=== PATIENT | male | born 1940 | race Caucasian/White ===

== ENCOUNTER 2019-06-16 07:32 | Observation (INO) | payer MEDICARE, SELFPAY ==
[2019-06-16] VITALS (20 sets, daily range): BP systolic 160–234; BP diastolic 71–108; PULSE 63–79; RESP 13–20; TEMP 36.3–36.9; O2SAT 96–99; BMI 32.0
--- NOTE | 2019-06-16 07:39 | ED.NEUROSD ---
HPI - Neuro Symptoms/Deficit General Chief Complaint: Neuro Symptoms/Deficit Stated Complaint: Weakness & Difficulty Walking Time Seen by Provider: 06/16/19 07:37 Source: patient Mode of arrival: EMS Limitations: no limitations History of Present Illness HPI Narrative: 79-year-old male arrives by EMS for evaluation of symptoms that occurred this morning. Patient states that he went to bed last night feeling fine. States that he woke up this morning feeling lightheaded. He stated that he felt like he could not walk with his left leg being weaker than his right leg. He states that when he called 911 he thought that he was slurring his words. All of the symptoms have greatly improved if not resolved. Patient has a history of hypertension. Did not take his blood pressure medicines yesterday. No prior history of stroke. Not on anticoagulation. He did not fall this morning. Related Data Home Medications Medication Instructions Recorded Confirmed atorvastatin 40 mg PO DAILY 06/16/19 06/16/19 citalopram 20 mg PO DAILY 06/16/19 06/16/19 losartan-hydrochlorothiazide 1 tab PO DAILY 06/16/19 06/16/19 naproxen sodium [Aleve] 220 mg PO PRN PRN 06/16/19 06/16/19 omeprazole 20 mg PO DAILY 06/16/19 06/16/19 Allergies Allergy/AdvReac Type Severity Reaction Status Date / Time No Known Drug Allergies Allergy Verified 06/16/19 07:38 Review of Systems Constitutional Constitutional: Denies fever(s), Denies headache(s) and Reports weakness ENT Ears, Nose, Mouth, and Throat: Reports dizziness, Denies headache(s) and Reports disequilibrium Cardiovascular Cardiovascular: Denies chest pain and Denies dyspnea Respiratory Respiratory: Denies dyspnea Gastrointestinal Gastrointestinal: Denies abdominal pain, Denies nausea and Denies vomiting Genitourinary Genitourinary: Denies dysuria Musculoskeletal Musculoskeletal: Reports abnormal gait, Denies myalgias, Denies arthralgias, Reports muscle weakness, Reports numbness and Reports tingling Integumentary/Breasts Skin/Breast: Denies lesions and Denies rash Neurologic Neurologic: Reports abnormal speech, Reports abnormal gait, Reports behavioral changes, Denies confusion, Reports dizziness, Denies headache(s), Reports numbness, Reports tingling, Reports disequilibrium and Reports weakness Psychiatric Psychiatric: Reports behavioral changes and Denies confusion Hematologic/Lymphatic Hematologic/Lymphatic: Denies easy bleeding and Denies easy bruising [facility] Medical History Hyperlipidemia (Acute) Hypertension (Acute) Surgical History History of prostatectomy (Acute) Social History lives independently: Yes Exam Initial Vital Signs Initial Vital Signs: Vital Signs Temperature 98.5 F 06/16/19 07:38 Pulse Rate 76 06/16/19 07:38 Respiratory Rate 16 06/16/19 07:38 Blood Pressure 234/94 H 06/16/19 07:38 Pulse Oximetry 99 06/16/19 07:38 Const General: cooperative, comfortable, well developed, well groomed and No acute distress Orientation: alert, awake and oriented x3 HENMT Head: normal to inspection, normocephalic and atraumatic Mouth: oral mucosae normal Eyes Pupils: PERRL EOM: EOM intact bilaterally Resp Effort & Inspection: normal respiratory effort Auscultation: clear to auscultation bilaterally Cardio Rate: regular rate Rhythm: regular rhythm Pulses: radial pulses present GI Inspection: non-distended Palpation: soft, No firm and No tender Back/Spine/Pelvis Back: No CVA tenderness Skin Lesions: no lesions Rashes: no rashes Neuro General: alert, awake and oriented x3 Cranial Nerves: CN's II-XI intact bilaterally Cognition: normal cognition Speech: speech normal Motor: muscle tone normal throughout Sensory Exam: no sensory deficits noted Coordination: [id number] test normal Extrem General: normal to inspection, capillary refill normal and No edema Psych Appearance: grossly normal and well kempt Scores GCS [place] coma scale eye opening: Spontaneous [place] coma scale verbal response: Orientated [place] coma scale motor response: Obey commands [place] coma scale total score: 15 NIH Stroke Scale Level of Conciousness: Alert, keenly responsive Ask month/age: Answers both questions correctly. Open/close eyes, close hand: Performs both tasks correctly Best gaze horizontal: Normal Visual campo: No visual loss Facial palsy: Normal symetrical movement Left arm drift: No drift for full 10 sec Right arm drift: No drift for full 10 sec Left leg drift: No drift for full 10 sec Right leg drift: No drift for full 10 sec Limb ataxia: Absent Sensory on face/arms/legs: Normal, no sensory loss Best language: No aphasia, normal Dysarthria: Normal Extinction or inattention: No abnormality Total NIH Stroke scale score: 0 Course Orders Ordered: ED Orders 06/16/19 07:35 EKG-12 Lead Stat 06/16/19 07:38 CT head/brain wo con Stat 06/16/19 07:39 XR chest 1V Stat 06/16/19 07:40 Complete Blood Count AUTO DIFF Stat Comprehensive Metabolic Panel Stat Ethanol (ETOH) Stat Lipase Stat Partial Thromboplastin Time Stat Prothrombin Time INR Stat Thyroid Stimulating Hormone Stat Troponin I Stat Discontinued Medications Aspirin (Aspirin Chew) 324 mg PO NOW ONE Stop: 06/16/19 07:38 Last Admin: 06/16/19 08:23 Dose: 324 mg Documented by: LAURITA Vital Signs Vital signs: Vital Signs - 8 hr 06/16/19 07:38 06/16/19 08:17 06/16/19 08:24 Temperature 98.5 F Pulse Rate 76 74 70 Respiratory Rate 16 19 19 Blood Pressure 234/94 H Blood Pressure [Left Arm] 204/91 H 208/85 H Pulse Oximetry 99 97 99 06/16/19 09:06 Temperature Pulse Rate 73 Respiratory Rate 18 Blood Pressure Blood Pressure [Left Arm] Pulse Oximetry 99 MDM - Neuro Symptoms/Deficit Lab Data Attestation: I reviewed the patient's lab results. Result diagrams: 06/16/19 07:40 06/16/19 07:40 Labs: Lab Results 06/16/19 06/16/19 06/16/19 Range/Units 07:40 07:40 07:40 WBC 8.7 (4.5-11.0) X10^3/uL RBC 4.66 (4.5-5.9) X10^6/uL Hgb 15.2 (13.5-17.5) g/dL Hct 43.4 (41-53) % MCV 93.2 (80-100) fL MCH 32.5 (26-34) PG MCHC 34.9 (30-36) % RDW 12.4 (11.6-14.8) % Plt Count 200 (150-400) X10^3/uL Neut % (Auto) 68.9 (50-75) % Lymph % (Auto) 21.3 L (25-40) % [place] % (Auto) 7.5 (3-14) % Eos % (Auto) 1.8 L (2-4) % Baso % (Auto) 0.5 (0-2) % Neut # (Auto) 6000 (7346-8033) /uL Lymph # (Auto) 1900 (2343-5264) /uL [place] # (Auto) 700 (0-900) /uL Eos # (Auto) 200 (0-450) /uL Baso # (Auto) 0 (0-100) /uL PT 10.7 (10.1-12.7) SECONDS INR 0.9 (0.9-1.3) APTT 27 (26.4-36.2) SECONDS Sodium 135 L (137-145) mmol/L Potassium 3.8 (3.4-5.1) mmol/L Chloride 92 L (98-107) mmol/L Carbon Dioxide 31 (22-32) mmol/L BUN 10 (9-20) mg/dL Creatinine 0.70 (0.66-1.25) mg/dL Estimated GFR > 60.0 (>60) mL/min BUN/Creatinine Ratio 14.3 (6-22) Glucose 106 (80-110) mg/dL Calcium 9.5 (8.4-10.2) mg/dL Total Bilirubin 1.1 (0.2-1.3) mg/dL AST 36 (17-59) IU/L ALT 37 (21-72) IU/L Alkaline Phosphatase 63 (38-126) U/L Troponin I < 0.012 (0.01-0.034) ng/mL Total Protein 7.8 (6.3-8.2) g/dL Albumin 4.8 (3.5-5.0) g/dL Globulin 3.0 (1.7-4.1) g/dL Albumin/Globulin Ratio 1.6 (1.0-2.8) Lipase 68 (23-300) U/L TSH (0.47-4.68) uIU/mL Ethyl Alcohol < 10 ( - 10) mg/dL 06/16/19 Range/Units 07:40 WBC (4.5-11.0) X10^3/uL RBC (4.5-5.9) X10^6/uL Hgb (13.5-17.5) g/dL Hct (41-53) % MCV (80-100) fL MCH (26-34) PG MCHC (30-36) % RDW (11.6-14.8) % Plt Count (150-400) X10^3/uL Neut % (Auto) (50-75) % Lymph % (Auto) (25-40) % [place] % (Auto) (3-14) % Eos % (Auto) (2-4) % Baso % (Auto) (0-2) % Neut # (Auto) (0628-4370) /uL Lymph # (Auto) (4700-6384) /uL [place] # (Auto) (0-900) /uL Eos # (Auto) (0-450) /uL Baso # (Auto) (0-100) /uL PT (10.1-12.7) SECONDS INR (0.9-1.3) APTT (26.4-36.2) SECONDS Sodium (137-145) mmol/L Potassium (3.4-5.1) mmol/L Chloride (98-107) mmol/L Carbon Dioxide (22-32) mmol/L BUN (9-20) mg/dL Creatinine (0.66-1.25) mg/dL Estimated GFR (>60) mL/min BUN/Creatinine Ratio (6-22) Glucose (80-110) mg/dL Calcium (8.4-10.2) mg/dL Total Bilirubin (0.2-1.3) mg/dL AST (17-59) IU/L ALT (21-72) IU/L Alkaline Phosphatase (38-126) U/L Troponin I (0.01-0.034) ng/mL Total Protein (6.3-8.2) g/dL Albumin (3.5-5.0) g/dL Globulin (1.7-4.1) g/dL Albumin/Globulin Ratio (1.0-2.8) Lipase (23-300) U/L TSH 1.69 (0.47-4.68) uIU/mL Ethyl Alcohol ( - 10) mg/dL Imaging Data CT scan - head: Radiologist's impression: [address] [address] [address] Scan Report Signed Patient: Alexandro Martinez MMR#: [id number] : 2Acct:[id number] Age/Sex: 79 / MDate of Service: 06/16/19 Loc: ED Accession Number: [id number] Procedure: CT head/brain wo con Ordering Provider: Víctor Juares D.O. PROCEDURE: CT HEAD/BRAIN WO CON INDICATIONS: possible TIA TECHNIQUE: Noncontrast 4.5 mm thick angled axial sections acquired from the foramen magnum to the vertex, with coronal and sagittal reformats. For radiation dose reduction, the following was used: automated exposure control, adjustment of mA and/or kV according to patient size. COMPARISON: None. FINDINGS: Image quality: Excellent. CSF spaces: Basal cisterns are patent. No extra-axial fluid collections. The ventricles are symmetric in size and shape. Brain: No intracranial bleeds or masses. Small lacunar infarcts are seen in bilateral basal ganglia. There is cerebral volume loss for age, with resultant ventricular and sulcal prominence. There are periventricular and deep white matter chronic small vessel ischemic changes. There is intracranial internal carotid artery atherosclerosis. Skull and face: Calvarium and visualized facial bones appear intact, without suspicious lesions. Sinuses: Visualized sinuses and mastoids are clear. IMPRESSION: 1. No CT evidence of acute intracranial pathology. 2. Mild atrophy and mild periventricular white matter chronic ischemic microangiopathic changes. 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 Dictated by: James Cervantes M.D. on 06/16/2019 at 8:16 Approved by: James Cervantes M.D. on 06/16/2019 at 8:17 Chest x-ray: Radiologist's impression: [place] [address] XRay Report Signed Patient: Alexandro Martinez [facility]#: [id number] : 2Acct:[id number] Age/Sex: 79 / MDate of Service: 06/16/19 Loc: ED Accession Number: [id number] Procedure: XR chest 1V Ordering Provider: Víctor Juares D.O. PROCEDURE: XR CHEST 1V INDICATIONS: possible TIA TECHNIQUE: One view of the chest was acquired. COMPARISON: None. FINDINGS: Surgical changes and devices: None. Lungs and pleura: Lungs are clear. No pleural effusions or pneumothorax. Mediastinum: Mediastinal contours appear normal. Heart size is normal. Bones and chest wall: No suspicious bony lesions. Overlying soft tissues appear unremarkable. IMPRESSION: No acute cardiopulmonary disease. Dictated by: Rhoda Wiggins M.D. on 06/16/2019 at 8:40 Approved by: Rhoda Wiggins M.D. on 06/16/2019 at 8:40 ECG Data Attestation: I personally reviewed and interpreted this ECG as follows: Prior ECG tracings: not available for review Interpretation: Sinus rhythm Ventricular rate is 72 Normal QRS Normal QTC Left axis deviation No ST T wave changes MDM Narrative Medical decision making narrative: Patient NIH score is 0. Was given aspirin. His blood pressure has come down on its own without any intervention. He did not take his blood pressure medicine yesterday. No acute changes on his head CT. No indication for tPA. I do suspect a TIA. I did discuss this with the patient. Will admit for further evaluation and treatment. Discussed the case with Dr. Boone with Internal Medicine who will admit for further evaluation treatment. Discharge Plan Departure Patient Disposition: Admitted as Observation Clinical Impression: TIA (transient ischemic attack) Hypertension Qualifiers: Hypertension type: unspecified Qualified Code(s): I10 - Essential (primary) hypertension
[2019-06-16 07:53] LABS: Add Manual Diff / Slide Review NO; Basophils Absolute Auto 0 /uL (0-100); Basophils Percent Auto 0.5 % (0-2); Eosinophils Absolute Auto 200 /uL (0-450); Eosinophils Percent Auto 1.8 % (2-4); Hematocrit 43.4 % (41-53); Hemoglobin 15.2 g/dL (13.5-17.5); Lymphocytes Absolute Auto 1900 /uL (1100-4500); Lymphocytes Percent Auto 21.3 % (25-40); Mean Corpuscular HGB Conc 34.9 % (30-36); Mean Corpuscular Hemoglobin 32.5 PG (26-34); Mean Corpuscular Volume 93.2 fL (80-100); Monocytes Absolute Auto 700 /uL (0-900); Monocytes Percent Auto 7.5 % (3-14); Neutrophils Absolute Auto 6000 /uL (1500-7000); Neutrophils Percent Auto 68.9 % (50-75); Platelet Count 200 X10^3/uL (150-400); Red Blood Cell Count 4.66 X10^6/uL (4.5-5.9); Red Cell Distribution Width 12.4 % (11.6-14.8); White Blood Cell Count 8.7 X10^3/uL (4.5-11.0)
[2019-06-16 07:55] LABS: INR 0.9 (0.9-1.3); Prothrombin Time 10.7 SECONDS (10.1-12.7)
[2019-06-16 07:58] LABS: PTT Partial Thromboplastin Tim 27 SECONDS (26.4-36.2)
[2019-06-16 08:12] LABS: Alanine Aminotransferase 37 IU/L (21-72); Albumin 4.8 g/dL (3.5-5.0); Albumin Globulin Ratio 1.6 (1.0-2.8); Alkaline Phosphatase 63 U/L (38-126); Aspartate Aminotransferase 36 IU/L (17-59); BUN Creatinine Ratio 14.3 (6-22); Bilirubin Total 1.1 mg/dL (0.2-1.3); Blood Urea Nitrogen 10 mg/dL (9-20); Calcium 9.5 mg/dL (8.4-10.2); Carbon Dioxide 31 mmol/L (22-32); Chloride 92 mmol/L (98-107); Estimated Glomerular Filt Rate > 60.0 mL/min (>60); Ethanol (ETOH) < 10 mg/dL; Glucose 106 mg/dL (80-110); HEMOLYSIS < 15 (0-50); Lipase 68 U/L (23-300); Potassium 3.8 mmol/L (3.4-5.1); Sodium 135 mmol/L (137-145); Total Protein 7.8 g/dL (6.3-8.2)
[2019-06-16 08:23] LABS: Troponin I < 0.012 ng/mL (0.01-0.034)
[2019-06-16] MEDS: ASPIRIN 81 MG CHEW TAB 324 MG PO (08:23)
--- NOTE | 2019-06-16 08:44 | PC.NURSE ---
Patient reports when he work up he was unable to walk and was dragging his left foot, he also reports difficulty finding/forming words. These symptoms have resolved now. NIH Scale 0.
[2019-06-16 08:45] LABS: Thyroid Stimulating Hormone 1.69 uIU/mL (0.47-4.68)
--- NOTE | 2019-06-16 14:45 | DI.MRI.S_ITS ---
PROCEDURE: MR STROKE Pre- and post-contrast brain MRI, non-contrast brain MR angiogram, pre- and postcontrast neck MR angiogram INDICATIONS: slurred speech, left sided weakness TECHNIQUE: Brain: Noncontrast axial T1 spin echo, axial T2 fast spin echo, sagittal and axial FLAIR, coronal T2 fast spin echo, axial gradient echo, axial diffusion and ADC through the brain. After the administration of contrast, axial 3D VIBE of the cranial vasculature and brain. Brain MRA: Non-contrast 3-D time of flight MR angiogram, with multiple rdrtkps-jiqamrghg-okjsepmryz (MIP) reformats performed. Neck MRA: Axial and sagittal TruFISP through the neck. Coronal dynamic MR angiogram during administration of contrast in the arterial and venous phases, with 3-dimenstional zxcvotu-qfgnyezdb-ekaglyclje (MIP) reformats constructed from subtraction images. COMPARISON: [facility], CT, CT HEAD/BRAIN WO CON, 06/16/2019, 8:05. FINDINGS: Image quality: Excellent. BRAIN: CSF spaces: Ventricles are normal in size and shape. Basal cisterns are patent. No extra-axial fluid collections. Brain: No intracranial bleeds or mass effects. [place]-white matter interface is normal. Diffusion weighted images show no acute ischemic insults. There is moderate cerebral volume loss. An old lacunar infarct is noted in the right james radiata. Brainstem appears normal. Normal intravascular flow voids are present. No abnormal intracranial enhancement. Skull and face: Calvarial marrow signal is normal. Orbits appear normal. Sinuses: Sinuses and mastoids are clear. BRAIN MR ANGIOGRAM: Anterior circulation: Intracranial internal carotid arteries are normal in size and enhancement. The flow within the paired anterior cerebral arteries is normal and symmetric. The flow within the middle cerebral arteries is normal and symmetric. The anterior communicating artery is seen. No stenoses, occlusions, or aneurysms. Posterior circulation: The visualized portions of the vertebral arteries demonstrate normal caliber, and join to form a normal appearing basilar artery. The flow within the posterior cerebral arteries is normal and symmetric. No stenoses, occlusions, or aneurysms. NECK MR ANGIOGRAM: There are motion artifacts. Carotids: There is common trunk for the left common carotid artery and innominate artery. The origins of the common carotid arteries appear patent. The calibers and courses of both common carotid arteries are normal. The bifurcation regions appear normal bilaterally. The internal carotid arteries demonstrate normal course and caliber. Posterior circulation: The origins of the vertebral arteries appear patent. There is an artifact the proximal right vertebral artery, and lesser degree the proximal left vertebral artery. More superior portions of both vertebral arteries demonstrate normal course and caliber, and join to form a normal appearing basilar artery. Miscellaneous: Subclavian arteries appear patent. Pre-contrast images through the neck show no soft tissue abnormalities. Trace left effusion. IMPRESSION: BRAIN MRI: 1. No acute intracranial abnormalities. 2. Moderate cerebral volume loss. 3. An old lacunar infarct in right james radiata. BRAIN MR ANGIOGRAM: 1. No high-grade stenosis or occlusion in anterior circulations. 2. No high-grade stenosis or occlusion in posterior circulations. NECK MR ANGIOGRAM: 1. No high-grade stenosis or occlusion in cervical carotid arteries bilaterally. 2. No high-grade stenosis or occlusion in cervical vertebral arteries bilaterally. Dictated by: Rhoda Wiggins M.D. on 06/16/2019 at 16:24 Approved by: Rhoda Wiggins M.D. on 06/16/2019 at 16:35
--- NOTE | 2019-06-16 15:38 | PC.NURSE ---
Admitted patient, patient is A/O x4 and amicable. Patient denies pain, SOB, N/V, dizziness or chest pain at this time. Patient off unit for MRI. Able to go down for procedure in wheelchair.
[2019-06-16] MEDS: SODIUM CHLORIDE 0.9% 1,000 ML 100 ML IV (17:17)
--- NOTE | 2019-06-16 17:50 | PM.HP.1 ---
History of Present Illness History of Present Illness Date Patient Seen: 06/16/19 Chief complaint: Weakness & Difficulty Walking Narrative: Alexandro Martinez is a 79-year-old male with a past medical history significant for hypertension, hyperlipidemia, and depression who presented after having an episode of slurred speech and lower extremity weakness left greater than right. The patient reports that when he woke up at approximately 7:00 a.m. and got out of bed he noticed his left foot was dragging which prompted him to call 911. When he was on the phone with 911 he noticed his speech was slurred and he had difficulty with pronunciation. He reports mild ataxia and bilateral lower extremity weakness left greater than right. His son denies any facial droop. He denies any upper extremity weakness or paresthesias. He also noted lightheadedness. His symptoms resolved within approximately 30 minutes. He denies ever having any stroke-like symptoms previously. Upon arrival to the emergency department the patients symptoms had resolved. Currently the patient denies headache, lightheadedness or dizziness, vision changes, chest pain, shortness of breath, abdominal pain, nausea, vomiting, fever, chills, dysuria, diarrhea constipation. 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 The patient was admitted for observation for TIA rule out. Of note, the patient reports that he drinks 5 mixed whiskey drinks per night. The patient denies any history of alcohol withdrawal, delirium tremens, or alcohol withdrawal seizures. However, the patient reports he has not went without alcohol for a substantial period of time. Patient History Medical History Alcohol dependence (Acute) Depression (Acute) GERD (gastroesophageal reflux disease) (Acute) Hyperlipidemia (Acute) Hypertension (Acute) Surgical History History of prostatectomy (Acute) History of tonsillectomy (Acute) Family History (Updated 06/16/19 @ 21:56 by Clementine Boone DO) Father CAD (coronary artery disease) Mother No problems noted. Social History household members: children lives independently: Yes Smoking Status: Former smoker alcohol intake: current Family & Social History Family History Father CAD (coronary artery disease) Mother No problems noted. Social History: household members children Prior Living Arrangements House lives independently Yes Safety & Behavioral: Feels Safe in Current Yes Environment Been Physically Hurt or No Threatened By a Person Suicidal Ideation Description None Suicide Plan Description No Plan Tobacco & Substance use: Tobacco type cigarettes,cigars Smoking Status Former smoker, 1ppd x 15 years alcohol intake current alcohol intake frequency 5 mixed whiskey drinks per day Substance Use Type marijuana Meds Home Medications and Allergies Home Medications Medication Instructions Recorded Confirmed Type atorvastatin 40 mg PO DAILY 06/16/19 06/16/19 History citalopram 20 mg PO DAILY 06/16/19 06/16/19 History losartan-hydrochlorothiazide 1 tab PO DAILY 06/16/19 06/16/19 History naproxen sodium [Aleve] 220 mg PO PRN PRN 06/16/19 06/16/19 History omeprazole 20 mg PO DAILY 06/16/19 06/16/19 History Allergies Allergy/AdvReac Type Severity Reaction Status Date / Time No Known Drug Allergies Allergy Verified 06/16/19 07:38 Review of Systems Review of Systems Narrative: A 10 system comprehensive review of systems was conducted with the patient and found to be negative except as above in the History of Present Illness. Exam Vital Signs (past 8 hours): - 06/16/19 10:07 06/16/19 10:39 06/16/19 11:17 Temperature Pulse Rate 78 76 76 Respiratory Rate 13 13 13 Blood Pressure Blood Pressure [Left Arm] 191/71 H 179/89 H 188/88 H Pulse Oximetry 98 97 97 06/16/19 12:00 06/16/19 13:19 06/16/19 13:23 Temperature 98.0 F Pulse Rate 76 78 79 Respiratory Rate 16 16 18 Blood Pressure 160/79 H 165/108 H Blood Pressure [Left Arm] 192/90 H Pulse Oximetry 96 97 97 06/16/19 16:00 06/16/19 16:56 Temperature 98.2 F Pulse Rate 76 Respiratory Rate 20 Blood Pressure 197/108 H Blood Pressure [Left Arm] Pulse Oximetry 98 98 Oxygen Delivery Method Room Air Oxygen Flow Rate 0 Narrative Exam Narrative: General: Elderly gentleman sitting in bedside chair and in no acute distress, well-developed, well-nourished, appropriately interactive. HEENT: Normocephalic, atraumatic. External ears without defect. Pupils equal, round, and reactive to light. Anicteric sclerae, moist conjunctivae, and no lid lag. Oropharynx free of erythema and cobble stoning with moist mucosa. Neck: Supple with full range of motion. No jugular venous distension. No bruits. No lymphadenopathy or thyromegaly. Cardiovascular: Regular rate and rhythm without murmurs, rubs, or gallops appreciated. Pulmonary: Clear to auscultation bilaterally without crackles, wheezes, or rhonchi. Normal respiratory effort with no use of accessory muscles. Abdomen: Soft, bowel sounds present, nontender, nondistended. No hepatosplenomegaly or masses appreciated. Extremities: No clubbing, cyanosis, or edema. Skin: Normal temperature, turgor, and texture; no rash, ulcers, or subcutaneous nodules appreciated. Neurological: Cranial nerves grossly intact. Normal muscle strength, tone, and bulk. Reflexes, coordination, and sensory function within normal limits. No facial droop. No slurred speech. No focal neurological deficits Psychiatric: Normal mood and affect. Alert and oriented to person, place, and time. Mild cognitive impairment with short-term memory recall deficit. Objective Labs Result Diagrams: 06/16/19 07:40 06/16/19 07:40 Labs: Laboratory Results - last 24 hr 06/16/19 06/16/19 06/16/19 07:40 07:40 07:40 WBC 8.7 RBC 4.66 Hgb 15.2 Hct 43.4 MCV 93.2 MCH 32.5 MCHC 34.9 RDW 12.4 Plt Count 200 Neut % (Auto) 68.9 Lymph % (Auto) 21.3 L [place] % (Auto) 7.5 Eos % (Auto) 1.8 L Baso % (Auto) 0.5 Neut # (Auto) 6000 Lymph # (Auto) 1900 [place] # (Auto) 700 Eos # (Auto) 200 Baso # (Auto) 0 PT 10.7 INR 0.9 APTT 27 Sodium 135 L Potassium 3.8 Chloride 92 L Carbon Dioxide 31 BUN 10 Creatinine 0.70 Estimated GFR > 60.0 BUN/Creatinine Ratio 14.3 Glucose 106 Calcium 9.5 Total Bilirubin 1.1 AST 36 ALT 37 Alkaline Phosphatase 63 Troponin I < 0.012 Total Protein 7.8 Albumin 4.8 Globulin 3.0 Albumin/Globulin Ratio 1.6 Lipase 68 TSH Ethyl Alcohol < 10 06/16/19 07:40 WBC RBC Hgb Hct MCV MCH MCHC RDW Plt Count Neut % (Auto) Lymph % (Auto) [place] % (Auto) Eos % (Auto) Baso % (Auto) Neut # (Auto) Lymph # (Auto) [place] # (Auto) Eos # (Auto) Baso # (Auto) PT INR APTT Sodium Potassium Chloride Carbon Dioxide BUN Creatinine Estimated GFR BUN/Creatinine Ratio Glucose Calcium Total Bilirubin AST ALT Alkaline Phosphatase Troponin I Total Protein Albumin Globulin Albumin/Globulin Ratio Lipase TSH 1.69 Ethyl Alcohol Assessment & Plan Assessment & Plan narrative: Alexandro Martinez is a 79-year-old male with a past medical history significant for hypertension, hyperlipidemia, depression, GERD, and alcohol dependence who presented after having an episode of slurred speech and lower extremity weakness left greater than right. 1. Acute TIA, not present on admission. Resolved. -Patient presented with complaints of sudden-onset lower extremity weakness left greater than right and slurred speech that resolved within 30 minutes prior to arrival. 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 -Ordered MR stroke protocol, pending. -Continue frequent neuro checks and NIH stroke assessment every 4. Initial NIH score 0. -Continue to monitor closely on telemetry for ectopy. -Ordered echocardiogram, pending. -Risk stratified with fasting lipid panel and hemoglobin A1c tomorrow morning, pending. -Continue normal saline at 100 mL/hr to support cerebral perfusion. -Received aspirin 325 mg x1 in ED. Continue aspirin 81 mg daily and atorvastatin 40 mg daily at bedtime for stroke prevention. -Continue to allow for permissive hypertension for 24 hours. Ordered labetalol 10 mg IV every 4 hours as need for SBP > 185 and DBP > 110 sustained for 15 mintues. 2. Chronic hypertension with possible hypertensive emergency, present on admission. Active. -Patient presented with complaints of sudden-onset lower extremity weakness left greater than right and slurred speech that resolved within 30 minutes prior to arrival. Initial blood pressure upon arrival was 234/94. Therefore it is unclear whether patient had TIA with appropriate physiological response versus hypertensive emergency with neurological symptoms -Held losartan and hydrochlorothiazide and will plan to restart tomorrow morning. Allow for permissive hypertension as above. -Highly recommended cutting back on alcohol or alcohol cessation as below. 3. Hyperlipidemia, chronic, present on admission. Stable. -Continue atorvastatin 40 mg daily at bedtime. 4. Depression, chronic, present on admission. Stable. -Continue citalopram 20 mg daily. 5. GERD, chronic, present on admission. Stable. -Continue omeprazole 20 mg daily. 6. Alcohol dependence, chronic, present on admission. Stable. -Patient endorses drinking 5 mixed whiskey drinks per day which are greater than 4 oz of alcohol. -Patient denies any history of alcohol withdrawal including delirium tremens or alcohol withdrawal seizures, however, patient has not gone a substantial amount of time without alcohol. -Continue to monitor for signs of alcohol withdrawal and low threshold to start CIWA protocol. -Recommended cutting back significantly on alcohol intake and or alcohol cessation under medical guidance. Code Status: Full Code DVT PPx: SubQ Heparin Patient is admitted under observation status with expected length of stay less than 2 midnights due to severity of presenting symptoms, risk of adverse event, and complexity of treatment plan.
[2019-06-16] MEDS: LABETALOL 20 MG/4 ML SYRINGE 10 MG IV (18:16)
[2019-06-16] MEDS: HEPARIN 5,000 UNIT/ML VIAL 5000 UNIT SUBCUT (21:31)
--- NOTE | 2019-06-16 21:58 | DI.ECHO.S_ITS ---
[facility]---------+ [facility] +---------+ : : [id number] : [place] : : : : [id number] : : : : Phone: [phone]+ Echocardiogram Report + + :Name: TRICIA LEWIS Study Date: 06/17/2019 Height: 67 in : :[employer] [facility] Weight: 203 lb : : Gender: Male BSA: 2.0 m2 : :: 1940 Age: 79 yrs BP: 188/95 mmHg: :Reason For Study: TIA : : Performed By: Kathryn Venegas : :Referring: BETH HATCH : + + Interpretation Summary The study quality was technically difficult. The underlying rhythm cannot be determined. It could be sinus with PACs. -No obvious right to left shunt at rest or with Valsalva although a small passage of bubbles could not be ruled out due to poor acoustic windows. -Grossly normal ejection fraction with no obvious wall motion abnormalities. -None without any significant valvular abnormalities. -No significant change compared to the prior echo. Procedure: A two-dimensional transthoracic echocardiogram with color flow and Doppler was performed. Comparison is made with the echocardiogram of . The study quality was technically difficult. The heart rate ranged between 61-70 bpm during the study. Left Ventricle: The left ventricle is grossly normal size. The left ventricular ejection fraction is grossly normal. Regional wall motion abnormalities cannot be excluded due to limited visualization. Diastolic function could not be accurately assessed due to unobtainable data. Right Ventricle: The right ventricle grossly appears normal in size with probable normal systolic function. Atria: The left atrium grossly appears normal in size. The right atrium grossly appears normal in size. Injection of contrast documented no interatrial shunt. Mitral Valve: The mitral valve is grossly normal. There is trace mitral regurgitation. Aortic Valve: The aortic valve is mildly calcified. The aortic valve is not well visualized. The calculated aortic valve area is 1.9 cm2. The peak aortic velocity is 1.9 m/sec. The peak aortic velocity on the previous exam was 1.6 m/sec. The aortic valve mean gradient is 7 mmHg. No aortic regurgitation is present. Tricuspid Valve: The tricuspid valve is normal in structure and function. No tricuspid regurgitation. Pulmonic Valve: The pulmonic valve is not well seen, but is grossly normal. Great Vessels: The aortic root is normal size. The ascending aorta could not be visualized. The aortic arch is normal in size. The IVC is of normal diameter and collapses greater than 50% with a sniff. This suggests a low right atrial pressure of 3 mm Hg. Pericardium/ Pleura There is no pericardial effusion. There is no pleural effusion. MMode/2D Measurements & Calculations LVIDd: 5.4 cm LVOT diam: 2.0 cm LVIDs: 3.6 cm Ao root diam: 3.4 cm FS: 32.8 % Aortic Jxn: 2.8 cm EPSS: 0.93 cm Ao Arch Diam (Prox Trans): 2.6 cm IVSd: 0.93 cm LVPWd: 1.1 cm LV raygoza. diameter/BSA (cm/m^2): 2.6 LV sys. diameter/BSA (cm/m^2): 1.8 LA dimension: 3.6 cm IVC diam: 1.8 cm Doppler Measurements & Calculations Ao V2 max: 193.0 cm/sec LVOT Max Robert: 109.3 cm/sec Ao V2 mean: 118.9 cm/sec LV V1 max P.8 mmHg Ao max P.9 mmHg LV V1 VTI: 27.0 cm Ao mean P.9 mmHg ROMAN(I,D): 2.0 cm2 Ao V2 VTI: 44.2 cm ROMAN(V,D): 1.8 cm2 sev ratio: 0.61 ROMAN indexed to BSA (cm^2/m^2): 0.97 MV E max robert: 105.8 cm/sec PA V2 max: 92.7 cm/sec MV A max robert: 109.3 cm/sec PA V2 mean: 60.4 cm/sec MV E/A: 0.97 PA mean P.8 mmHg Med Peak E' Robert: 4.8 cm/sec PA Accel Time: 0.18 sec E/E' med: 21.8 Lat Peak E' Robert: 5.8 cm/sec E/E' lat: 18.3 E/e' average: 20.1 MV dec time: 0.21 sec MV P1/2t: 62.7 msec MV P1/2t max robert: 106.9 cm/sec SV(LVOT): 87.6 ml MVA(P1/2t): 3.5 cm2 Electronically signed by: Andrés Curiel M.D. on Reading Physician:06/17/2019 02:11 PM
[2019-06-16] MEDS: ATORVASTATIN 20 MG TABLET 40 MG PO (23:07)
[2019-06-17] VITALS (9 sets, daily range): BP systolic 148–191; BP diastolic 67–109; PULSE 65–90; RESP 18; TEMP 36.5–36.6; O2SAT 97–98
--- NOTE | 2019-06-17 00:31 | PC.NURSE ---
Addendum entered by Marilyn Callahan R.N. 06/17/19 05:14: BP earlier was 187/104 and when rechecked 15 minutes later was 189/104 so was given Labetalol and now BP is 163/75. Original Note: Patient is alert and oriented. NIH currently 0. Breath sounds CTA but diminished at bases; RA sat is 97%. HRR and telemetry reading was SR. BP elevated at177/96 but below parameters for needing Labetalol. Denies nausea. BT present and abdomen is soft. Denies dysuria, frequency or urgency. Able to move self in bed. SBA when out of bed for safety although patient denies feeling any weakness in LE stating it's back to normal. Denies pain. Fall risk score is moderate; bed alarm activated for safety.
[2019-06-17] MEDS: SODIUM CHLORIDE 0.9% 1,000 ML 100 ML IV (03:27)
[2019-06-17] MEDS: LABETALOL 20 MG/4 ML SYRINGE 10 MG IV (04:34)
[2019-06-17] MEDS: PANTOPRAZOLE 20 MG TABLET PO (06:02)
[2019-06-17 07:52] LABS: Add Manual Diff / Slide Review NO; Basophils Absolute Auto 0 /uL (0-100); Basophils Percent Auto 0.3 % (0-2); Eosinophils Absolute Auto 100 /uL (0-450); Eosinophils Percent Auto 1.4 % (2-4); Hematocrit 40.2 % (41-53); Hemoglobin 13.9 g/dL (13.5-17.5); Lymphocytes Absolute Auto 1600 /uL (1100-4500); Lymphocytes Percent Auto 25.1 % (25-40); Mean Corpuscular HGB Conc 34.7 % (30-36); Mean Corpuscular Hemoglobin 32.6 PG (26-34); Mean Corpuscular Volume 93.9 fL (80-100); Monocytes Absolute Auto 600 /uL (0-900); Monocytes Percent Auto 9.2 % (3-14); Neutrophils Absolute Auto 4200 /uL (1500-7000); Platelet Count 170 X10^3/uL (150-400); Red Blood Cell Count 4.28 X10^6/uL (4.5-5.9); Red Cell Distribution Width 12.5 % (11.6-14.8); White Blood Cell Count 6.6 X10^3/uL (4.5-11.0)
--- NOTE | 2019-06-17 07:53 | P.DS_ITS ---
History of Present Illness History of Present Illness Chief complaint: Weakness & Difficulty Walking Narrative: Written by myself Dr. Boone: Alexandro Martinez is a 79-year-old male with a past medical history significant for hypertension, hyperlipidemia, and depression who presented after having an episode of slurred speech and lower extremity weakness left greater than right. The patient reports that when he woke up at approximately 7:00 a.m. and got out of bed he noticed his left foot was dragging which prompted him to call 911. When he was on the phone with 911 he noticed his speech was slurred and he had difficulty with pronunciation. He reports mild ataxia and bilateral lower extremity weakness left greater than right. His son denies any facial droop. He denies any upper extremity weakness or paresthesias. He also noted lightheadedness. His symptoms resolved within approximately 30 minutes. He denies ever having any stroke-like symptoms previously. Upon arrival to the [facility] department the patients symptoms had resolved. Currently the patient denies headache, lightheadedness or dizziness, vision changes, chest pain, shortness of breath, abdominal pain, nausea, vomiting, fever, chills, dysuria, diarrhea constipation. 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 The patient was admitted for observation for TIA rule out. Of note, the patient reports that he drinks 5 mixed whiskey drinks per night. The patient denies any history of alcohol withdrawal, delirium tremens, or alc ohol withdrawal seizures. However, the patient reports he has not went without alcohol for a substantial period of time. Discharge Providers Provider Date of admission: 06/16/19 10:08 Discharge Date: 06/17/19 Primary care physician: Beatrice Obrien PA-C Consults: 06/16/19 17:21 Consult to Occupational Therapy Evaluate & Treat Comment: Physician Instructions: Evaluate and treat Consult to Physical Therapy Evaluate & Treat Comment: Physician Instructions: Evaluate and Treat Consult to Speech Therapy Evaluate & Treat Comment: Physician Instructions: Evaluate and treat Discharge provider: Clementine Boone DO Summary Hospital Course Discharge Diagnosis: 1. Acute TIA, not present on admission. Resolved. 2. Chronic hypertension with possible hypertensive emergency, present on admis elizabeth. Hypertension improved with treatment. 3. Hyperlipidemia, chronic, present on admission. Stable. 4. Depression, chronic, present on admission. Stable. 5. GERD, chronic, present on admission. Stable. 6. Alcohol dependence, chronic, present on admission. Stable. Hospital Course: Alexandro Martinez is a 79-year-old male with a past medical history significant for hypertension, hyperlipidemia, depression, GERD, and alcohol dependence who presented after having an episode of slurred speech and lower extremity weakness left greater than right. 1. Acute TIA, not present on admission. Resolved. -Patient presented with complaints of sudden-onset lower extremity weakness left greater than right and slurred speech that resolved within 30 minutes prior to arrival. 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 -MR stroke protocol did not demonstrate any acute intracranial abnormalities or high-grade stenosis or occlusion in his brain or neck. Moderate cerebral volume loss and an old lacunar infarct in right james radiata are present. -Continued frequent neuro checks and NIH stroke assessment every 4. Initial NIH score 0. -Continued to monitor closely on telemetry for ectopy. -Echocardiogram unremarkable and did not demonstrate any embolic source such as interatrial shunt. -Risk stratified with hemoglobin A1c normal at 5.1% and fasting lipid panel which demonstrated: Total cholesterol 164, triglycerides mildly elevated 153, LDL mildly elevated 75 (goal< 70), and HDL 58 -Continued normal saline at 100 mL/hr to support cerebral perfusion and discontinued after 24 hours. -Received aspirin 325 mg x1 in ED. Continued aspirin 81 mg daily and atorvastatin 40 mg daily at bedtime for stroke prevention. -Continued to allow for permissive hypertension for 24 hours. Ordered labetalol 10 mg IV every 4 hours as need for SBP > 185 and DBP > 110 sustained for 15 mintues. Restarted home medications including losartan 100 mg daily, hydr ochlorothiazide increased from 25 mg to 50 mg daily, and added amlodipine 5 mg daily to better control blood pressure. 2. Chronic hypertension with possible hypertensive emergency, present on admissi on. Hypertension improved with treatment. -Patient presented with complaints of sudden-onset lower extremity weakness left greater than right and slurred speech that resolved within 30 minutes prior to arrival. Initial blood pressure upon arrival was 234/94. Therefore it is unclear whether patient had TIA with appropriate physiological response versus hypertensive emergency with neurological symptoms -Held losartan and hydrochlorothiazide initially and allowed for permissive hypertension as above. Restarted home medications including losartan 100 mg daily, hydrochlorothiazide increased from 25 mg to 50 mg daily, and added amlodipine 5 mg daily to better control blood pressure. -Highly recommended cutting back significantly on alcohol use or alcohol cessation under medical guidance as below. -Continued heart healthy low-sodium diet. 3. Hyperlipidemia, chronic, present on admission. Stable. -Continued atorvastatin 40 mg daily at bedtime. 4. Depression, chronic, present on admission. Stable. -Continued citalopram 20 mg daily. 5. GERD, chronic, present on admission. Stable. -Continuedomeprazole 20 mg daily. 6. Alcohol dependence, chronic, present on admission. Stable. -Patient endorses drinking 5 mixed whiskey drinks per day which are greater than 4 oz of alcohol. -Patient denies any history of alcohol withdrawal including delirium tremens or alcohol withdrawal seizures, however, patient has not gone a substantial amount of time without alcohol. -Continued to monitor for signs of alcohol withdrawal and had a low threshold to start CIWA protocol. Patient had no signs of alcohol withdrawal. -Recommended cutting back significantly on alcohol intake and or alcohol cess ation under medical guidance. Status at Discharge Overall status at discharge: patient is back to baseline Exam Vital Signs (past 8 hours): - 06/17/19 04:15 06/17/19 04:33 06/17/19 04:34 Temperature 97.9 F Pulse Rate 70 88 Respiratory Rate 18 Blood Pressure 187/104 H 189/104 H 189/104 H Pulse Oximetry 98 06/17/19 05:10 06/17/19 05:11 Temperature Pulse Rate 90 90 Respiratory Rate Blood Pressure 163/75 H 163/75 H Pulse Oximetry Oxygen Delivery Method Room Air Oxygen Flow Rate 0 Narrative Exam Narrative: General: Elderly gentleman sitting in bedside chair and in no acute distress, well-developed, well-nourished, appropriately interactive. HEENT: Normocephalic, atraumatic. External ears without defect. Pupils equal, round, and reactive to light. Anicteric sclerae, moist conjunctivae, and no lid lag. Neck: Supple with full range of motion. No jugular venous distension. No bruits. No lymphadenopathy or thyromegaly. Cardiovascular: Regular rate and rhythm without murmurs, rubs, or gallops appreciated. Pulmonary: Clear to auscultation bilaterally without crackles, wheezes, or rhonchi. Normal respiratory effort without use of accessory muscles. Abdomen: Soft, bowel sounds present, nontender, nondistended. No hepatosplenomegaly or masses appreciated. Extremities: No clubbing, cyanosis, or edema. Skin: Normal temperature, turgor, and texture; no rash, ulcers, or subcutaneous nodules appreciated. Neurological: Cranial nerves grossly intact. Normal muscle strength, tone, and bulk. Reflexes, coordination, and sensory function within normal limits. No facial droop. No slurred speech. No focal neurological deficits Psychiatric: Normal mood and affect. Alert and oriented to person, place, and time. Mild cognitive impairment with short-term memory recall deficit. Objective Labs Result Diagrams: 06/17/19 06:53 06/17/19 06:53 Labs: Laboratory Results - last 24 hr 06/16/19 06/16/19 06/16/19 07:40 07:40 07:40 WBC 8.7 RBC 4.66 Hgb 15.2 Hct 43.4 MCV 93.2 MCH 32.5 MCHC 34.9 RDW 12.4 Plt Count 200 Neut % (Auto) 68.9 Lymph % (Auto) 21.3 L [place] % (Auto) 7.5 Eos % (Auto) 1.8 L Baso % (Auto) 0.5 Neut # (Auto) 6000 Lymph # (Auto) 1900 [place] # (Auto) 700 Eos # (Auto) 200 Baso # (Auto) 0 PT 10.7 INR 0.9 APTT 27 Sodium 135 L Potassium 3.8 Chloride 92 L Carbon Dioxide 31 BUN 10 Creatinine 0.70 Estimated GFR > 60.0 BUN/Creatinine Ratio 14.3 Glucose 106 Calcium 9.5 Total Bilirubin 1.1 AST 36 ALT 37 Alkaline Phosphatase 63 Troponin I < 0.012 Total Protein 7.8 Albumin 4.8 Globulin 3.0 Albumin/Globulin Ratio 1.6 Lipase 68 TSH Ethyl Alcohol < 10 06/16/19 07:40 WBC RBC Hgb Hct MCV MCH MCHC RDW Plt Count Neut % (Auto) Lymph % (Auto) [place] % (Auto) Eos % (Auto) Baso % (Auto) Neut # (Auto) Lymph # (Auto) [place] # (Auto) Eos # (Auto) Baso # (Auto) PT INR APTT Sodium Potassium Chloride Carbon Dioxide BUN Creatinine Estimated GFR BUN/Creatinine Ratio Glucose Calcium Total Bilirubin AST ALT Alkaline Phosphatase Troponin I Total Protein Albumin Globulin Albumin/Globulin Ratio Lipase TSH 1.69 Ethyl Alcohol Discharge Plan Discharge Plan Patient Disposition: Home Discharge comment: You're being discharged home. You have had not had a new stroke. You have an old stroke which may be the cause of your dizziness versus vertigo. You have been prescribed aspirin 81 mg daily in addition to your atorvastatin 40 mg daily for stroke prevention. You have also been prescribed amlodipine 5 mg daily and your hydrochlorothiazide has been increased from 25 to 50 mg daily and continue losartan 100 mg daily. Your echocardiogram did not demonstrate any significant heart disease. I highly recommend you cut back significantly on alcohol use or stop using altogether under the guidance of a doctor. Alcohol can increase blood pressure and make it very difficult to control and it can cause insomnia, dementia, and liver disease with significant complications. Discharge Med Rec/Prescriptions Prescriptions: New losartan 50 mg Tablet 100 mg PO DAILY Qty: 30 RF: 0 hydrochlorothiazide 50 mg tablet 50 mg PO DAILY Qty: 30 RF: 0 aspirin 81 mg Tablet,Delayed Release (Dr/Ec) 81 mg PO DAILY Qty: 30 RF: 0 amlodipine 5 mg tablet 5 mg PO DAILY Qty: 30 RF: 0 Continued atorvastatin 40 mg tablet 40 mg PO DAILY RF: 0 citalopram 20 mg tablet 20 mg PO DAILY RF: 0 omeprazole 20 mg capsule,delayed release(DR/EC) 20 mg PO DAILY RF: 0 naproxen sodium [Aleve] 220 mg Tablet 220 mg PO PRN PRN (Reason: Back Pain) RF: 0 Discontinued losartan-hydrochlorothiazide 100-25 mg tablet 1 tab PO DAILY RF: 0 Follow up/Referrals: Saray Davis PA-C [Physician] - 06/20/19 3:20 pm (appt:06/20 @ 3:20 with surjit felix @ [address]) Beatrice Obrien PA-C [Primary Care Provider] - Provider Discharge Instructions Diet: Diet as Tolerated, Low-fat, Low-sodium and Low-cholesterol Activity: Activity as tolerated Visit Report/Discharge Packet Instructions: The Mediterranean Diet and Good Health, The DASH Diet, Alcohol Use Disorder, DI for Transient Ischemic Attack, DI for Malignant Hypertension, DI for Alcohol Abuse Discharge Data Primary Care Provider: Beatrice Obrien Attending Provider: Clementine Boone Admit Date/Time: 06/16/19 10:08
[2019-06-17 08:09] LABS: BUN Creatinine Ratio 16.7 (6-22); Blood Urea Nitrogen 10 mg/dL (9-20); Carbon Dioxide 27 mmol/L (22-32); Chloride 99 mmol/L (98-107); Cholesterol 164 mg/dL (140-199); Estimated Glomerular Filt Rate > 60.0 mL/min (>60); Glucose 112 mg/dL (80-110); HDL Cholesterol 58 mg/dL (40-60); HEMOLYSIS < 15 (0-50); LDL Cholesterol Calculated 75 mg/dL (<100); Potassium 3.6 mmol/L (3.4-5.1); Sodium 135 mmol/L (137-145); Triglycerides 153 mg/dL (35-150)
[2019-06-17 08:10] LABS: Hemoglobin A1C% w Est Avg Glu 5.1 % (4.0-6.0)
[2019-06-17] MEDS: hydroCHLOROthiazide 25 MG TABLET PO ×2 (08:22→14:33)
[2019-06-17] MEDS: ASPIRIN EC 81 MG TABLET PO (08:22)
[2019-06-17] MEDS: CITALOPRAM 20 MG TABLET PO (08:22)
[2019-06-17] MEDS: LOSARTAN 50 MG TABLET 100 MG PO (08:22)
[2019-06-17] MEDS: HEPARIN 5,000 UNIT/ML VIAL 5000 UNIT SUBCUT (08:22)
--- NOTE | 2019-06-17 09:14 | CM.DANOTE ---
Discharge Planning/Care Management DCP: assessment: case received, EMR reviewed and met briefly with pt as he was in process of exiting his room with PT Jose. Pt was noted to be ambulating with Jose as SBA and carrying IV equipment. Pt using no AD. Introduced self and role. Pt is a 79 year old male who admitted yesterday to care of hospitalist team. PCP: listed as Beatrice Obrien Payer: Medicare and [facility]P. Pt admitted after experiencing LE weakness, L foot drag, slurred speach and overall weakness. It is noted that he admits to 5 whiskey mixed drinks per day (and Dr. Boone has advised he consider decreasing or ceasing use use under PCP guidance). A d/c order is in but pt at time of this brief meeting wondered if he was going to d/c today. Pt's BP was elevated 189/104 this morning per ADIEL Sanders's documentation. P: Discuss in Team Rounds. Do final check in with pt after more is known. CM Discharge Assessment Start: 06/17/19 09:10 Freq: Status: Active Protocol: Document 06/17/19 09:10 ITV (Rec: 06/17/19 09:14 ITV [id number]) Discharge Planning Assessment Advance Directives? No History Provided By Patient,Medical Record Prior Living Arrangements House Review Status In Process
--- NOTE | 2019-06-17 10:12 | ST.IPIE ---
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 MRI was negative for acute abnormalities, but showed moderate cerebral volume loss and an old lacunar infarct in right james radiata. Per patient, symptoms have resolved since admission . 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 Endorses mild short term memory impairments at baseline . Feels as if all symptoms have resolved. Patient lives at home with his son. - Informal Assessment Receptive Language Normal Yes Expressive Language Normal Yes Articulation Normal Yes Cognition Normal No Assessment Findings Patient scored 25/30 on Oniel Cognitive Assessment indicating mild impairment in short term memory. Patient reports he uses a calendar at home to keep track of appointments, and places his medications and bills/mail out on his counter as a visual reminder. Recommendations No acute changes in speech, language or cognition warranting inpatient therapy; however, patient would be good candidate for outpatient speech therapy to target memory impairments and improve safety at home. Total Time Full Evaluation Time 30
--- NOTE | 2019-06-17 10:17 | PT.IIE ---
Surgical History (Last Reviewed 06/16/19 @ 21:57 by Clementine Boone DO) History of prostatectomy (Acute) History of tonsillectomy (Acute) Medical History (Last Reviewed 06/16/19 @ 21:57 by Clementine Boone DO) Alcohol dependence (Acute) Depression (Acute) GERD (gastroesophageal reflux disease) (Acute) Hyperlipidemia (Acute) Hypertension (Acute) Physical Therapy Inpatient Evaluation/Re-Eval M1 PT/OT-IP Prior Functional Status Start: 06/17/19 08:22 Freq: NEEDED Status: Active Protocol: Document 06/17/19 08:50 HH (Rec: 06/17/19 10:17 [id number]) Medical Review Prior Functional Status Medical History Reviewed Yes Communication No deficits noted. Able to make needs known Mobility and Gait Independent ambulator at home and community without AD. He stated he could only amb ~ 1-2 blocks at a time due to his bad back. Activities of Daily Living and IADL's independent for ADLs and IADLs without AD Social History Household Members children Living Arrangements House Number of Floors (Floors) One Floor Number of Stairs To Enter/Railing? 1 LUANNE Home Environment Standard Height Toilet,Tub/ Shower Doors Employment Status Retired Additional Social History Comment Pt lives with his son Michele in [facility]. Pt with a past medical history significant for hypertension, hyperlipidemia, and depression who experiencing LE weakness, L foot drag, slurred speach and overall weakness. It is noted that he admits to 5 whiskey mixed drinks per day ( and Dr. Boone has advised he consider decreasing or ceasing use use under PCP guidance) M2 PT-IP Current Condition Start: 06/17/19 08:22 Freq: NEEDED Status: Active Protocol: Document 06/17/19 08:50 HH (Rec: 06/17/19 10:17 [id number]) Physical Therapy Current Condition Current Condition Evaluation Date 06/17/19 Treatment Diagnosis weakness, decreased activity tolerance, difficulty in walking Onset Date 06/16/19 Weight Bearing Status Weight Bearing Status Full Weight Bearing M3 PT-IP Subjective Start: 06/17/19 08:22 Freq: NEEDED Status: Active Protocol: Document 06/17/19 08:50 HH (Rec: 06/17/19 10:17 [id number]) Subjective Physical Therapy Visit Type Type Initial Evaluation Visit Start Time 08:50 Visit Stop Time 09:15 Total Visit Minutes 25 Notes Per RN, Pt has asymptomatic HTN with baseline 180s/90s. He is going to have Echo eval later today. Number of ACCOUNT DEVELOPMENT MANAGER Visits 0 Physical Therapy Visit Comments Patient Comments I am feeling better today. Patient Goals To return home Therapy Pain Assessment Pain When Pain Assessed During Mobility M4 PT-IP Mobility and Gait Start: 06/17/19 08:22 Freq: NEEDED Status: Active Protocol: Document 06/17/19 08:50 (Rec: 06/17/19 10:17 [id number]) PT-Transfer Assessment Sit to and From Stand Sit to and from Stand Standby Assistance Equipment Transfer Assistive Device None Orthotic/Prosthetic Devices or Brace: No Transfers Transfer Destination Bed,Chair Transfer Technique Stand Step Pivot Transfer Ability Level of Assist Standby Assistance Comments Mobility Comments Pt up in chair with BP at 179/ 92 HR 60. Discussed with RN which this BP is relatively low and stable since admission . Pt then agreed to get up and amb for 2 laps without AD and only SBA. Pt amb a total of 424 ft and able to finish one lap in 1min 10 seconds. He stated everything feels normal . However, he c/o slight dizziness at the end of session. He then went back to bedside chair but his BP at 208/100 HR 66. Reclined pt to semi supine for 5 mins and his BP lowered to 188/95 HR 63. RN is aware of his elevated BP after ambulation. However, pt 's overall mobility is at baseline with good safety awareness and steady gait. Gait Assessment Gait Gait Assistance Required: Standby Assistance Distance (Feet) 424 Able to Maintain Weight Bearing Status Yes During Gait Assistive Devices Assistive Device None Gait Deviations General Gait Pattern Within Normal Limits Factors Limiting Gait Function Factors Limiting Gait Function Decreased Activity Tolerance, Decreased Strength Comments Gait Comments see mobility comments. Stair Climbing Assessment Evaluation Level of Assist On Stairs Standby Assistance Devices Stair Climbing Assistive Devices Left Railing,Right Railing Technique/Endurance Stair Climbing Direction Ascend and Descend Stair Climbing Technique Step Over Step Number of Steps Climbed 3 Query Text: Stair Climbing Set # Repetitions (reps) 2 PT-Balance Assessment Sitting Balance and Reactions Static Sitting Balance Ability Normal Dynamic Sitting Balance Ability Normal Standing Balance and Reactions Static Standing Balance Ability Normal Dynamic Standing Balance Ability Normal Device Used none Functional Assessments Other Functional Tests Performed 212 ft for 1minute 10 seconds M5 PT-IP Objective Assessments Start: 06/17/19 08:22 Freq: NEEDED Status: Active Protocol: Document 06/17/19 08:50 (Rec: 06/17/19 10:17 [id number]) Orientation Orientation/Cognition Level of Alertness Alert Orientation Name,Age,Birthday,Month,Date, Year,Day of Week,Place, Situation Language Function Ability No Deficits Noted Safety Awareness Understands Safety Issues Memory Description No Deficits Noted Gross Range of Motion Upper Extremity ROM Assessment Within Functional Limits Lower Extremity ROM Assessment Within Functional Limits Strength Upper Extremity Strength Assessment Within Functional Limits Lower Extremity Strength Assessment Within Functional Limits Comments Strength Comments RLE =5/5 LLE = 4+/5 Coordination Assessment Gross Coordination Gross Coordination WNL Assessment Finger to Nose Test Normal Performance Pronation/Supination Test Normal Performance Foot Tapping Test Normal Performance Heel on Phillips Test Normal Performance Sensation Assessment Sensation Gross Sensation WNL Light Touch Intact Proprioception (Position) Intact Muscle Tone Muscle Tone WNL Yes M7 PT-IP Assessment and Plan Start: 06/17/19 08:22 Freq: NEEDED Status: Active Protocol: Document 06/17/19 08:50 (Rec: 06/17/19 10:17 [id number]) PT Summary Assessment and Plan Potential Rehabilitation Potential Excellent Status of Condition at Evaluation Stable Summary Impairments Activity Tolerance Progress Towards Goals Safe For Discharge Assessment Summary Pt is eval only due to his baseline level functional mobility. Pt has chronic asymptomatic HTN with drinking habit (5 whiskey mixed drinks per day). Upon assessment, pt 's BP at 179/92 in sitting and went up to 208/100 after amb for 424 ft without AD. It then went down to 188/95 after sitting in reclined position for 5 minutes. However, pt was asymptomatic and denies acute headache or discomfort. In addition, pt's fine/ gross motor control and overall strength appears normal He did c/o slight dizziness but was resolved once he sat down after amb. Pt stated he is at baseline regarding of his mobility. Pt does not need skilled therapy at this point but is suggested that he will be d/c home with assistance as needed once his BP is stable. Pt will have echo eval today. Frequency of Treatment Frequency Of Treatment Discharge Discharge Recommendations PT Discharge Recommendations Home with Assistance
[2019-06-17] MEDS: AMLODIPINE 5 MG TABLET PO (14:33)
--- NOTE | 2019-06-17 15:22 | PC.NURSE ---
AM shift pt AO and receptive to care. SBA to BR and urinal in bed. Tele NSR. No pain reported. HTN 191/67, but subsequent BPs were 154/67 and 148/73. Echo completed. Clear and diminished lungs. Pending DC.
--- NOTE | 2019-06-17 16:02 | OT.IP.EVAL ---
Past Medical History (Last Reviewed 06/16/19 @ 21:57 by Clementine Boone DO) Alcohol dependence (Acute) Depression (Acute) GERD (gastroesophageal reflux disease) (Acute) Hyperlipidemia (Acute) Hypertension (Acute) Surgical History (Last Reviewed 06/16/19 @ 21:57 by Clementine Boone DO) History of prostatectomy (Acute) History of tonsillectomy (Acute) Occupational Therapy Inpatient Evaluation/Re-Eval M1 PT/OT-IP Prior Functional Status Start: 06/17/19 08:22 Freq: NEEDED Status: Active Protocol: Document 06/17/19 08:50 HH (Rec: 06/17/19 10:17 HH [id number]) Medical Review Prior Functional Status Medical History Reviewed Yes Communication No deficits noted. Able to make needs known Mobility and Gait Independent ambulator at home and community without AD. He stated he could only amb ~ 1-2 blocks at a time due to his bad back. Activities of Daily Living and IADL's independent for ADLs and IADLs without AD Social History Household Members children Living Arrangements House Number of Floors (Floors) One Floor Number of Stairs To Enter/Railing? 1 LUANNE Home Environment Standard Height Toilet,Tub/ Shower Doors Employment Status Retired Additional Social History Comment Pt lives with his son Michele in [facility]. Pt with a past medical history significant for hypertension, hyperlipidemia, and depression who experiencing LE weakness, L foot drag, slurred speach and overall weakness. It is noted that he admits to 5 whiskey mixed drinks per day ( and Dr. Boone has advised he consider decreasing or ceasing use use under PCP guidance) M1 PT/OT-IP Prior Functional Status Start: 06/17/19 15:44 Freq: NEEDED Status: Active Protocol: Document 06/17/19 15:45 CGR (Rec: 06/17/19 16:02 CGR [id number]) Medical Review Prior Functional Status Medical History Reviewed Yes Communication No deficits noted. Able to make needs known Mobility and Gait Independent ambulator at home and community without AD. He stated he could only amb ~ 1-2 blocks at a time due to his bad back. Activities of Daily Living and IADL's independent for ADLs and IADLs without AD Social History Household Members children Living Arrangements House Number of Floors (Floors) One Floor Number of Stairs To Enter/Railing? 1 step to enter Home Environment Standard Height Toilet,Tub/ Shower Employment Status Retired Additional Social History Comment Lives with his adult son. M2 OT-IP Current Condition Start: 06/17/19 15:44 Freq: Status: Active Protocol: Document 06/17/19 15:45 CGR (Rec: 06/17/19 16:02 CGR [id number]) Occupational Therapy Current Condition Current Condition Evaluation Date 06/17/19 Treatment Diagnosis L sided weakness Diagnosis Onset Date 06/16/19 M3 OT- IP Subjective and Pain Start: 06/17/19 15:44 Freq: Status: Active Protocol: Document 06/17/19 15:45 CGR (Rec: 06/17/19 16:02 CGR [id number]) OT- Subjective Occupational Therapy Visit Type Type Initial Evaluation Visit Start Time 14:45 Visit Stop Time 15:11 Total Visit Minutes 26 Occupational Therapy Visit Comments Patient Comments Yeah, I'd love to get up for a shower. OT Pain Assessment Pain When Pain Assessed At Rest Pain Present Pain Present Denied Pain M4 OT- IP ADL's Start: 06/17/19 15:44 Freq: Status: Active Protocol: Document 06/17/19 15:45 CGR (Rec: 06/17/19 16:02 CGR [id number]) OT IKI-Lfcy-Lrgvllo General Evaluation Self-Feeding Ability Independent OT ADL-Grooming General Evaluation Grooming Ability Independent Areas Needing Assistance Combing/Brushing Hair Comments OT Grooming Comments Standing at sink OT ADL-Oral Care Comments Oral Care Comments Not performed OT ADL-Dressing General Eval Upper Body Dressing Ability Independent Lower Body Dressing Ability Independent Areas Needing Assistance Underpants/Brief,Socks Comments OT Dressing Comments Hospital gown, brief, and socks. OT ADL-Toileting General Evaluation Toileting Ability Independent OT ADL-Bathing Bathing Type Bathing Type Shower General Evaluation Bathing Ability Independent Areas Needing Assistance Retrieving/Setting Up Items Devices Bathing Equipment Hand Held Shower Sprayer, Shower Chair with Arms M5 OT- IP IADL's Start: 06/17/19 15:44 Freq: Status: Active Protocol: Document 06/17/19 15:45 CGR (Rec: 06/17/19 16:02 CGR [id number]) OT-Instrumental Activities of Daily Living Deficits IADL Deficits Identified No Deficits Home Safety Awareness Awareness of Need for Assistance at Home Good Awareness Ability to Problem Solve Emergency Able to Problem Solve Situations Medication Management Medication Management No Deficits Identified Money Management Money Management No Deficits Identified Meal Preparation Meal Preparation No Deficits Identified Missile Facilities Repairer Missile Facilities Repairer No Deficits Identified M6 OT- IP Functional Cognition Start: 06/17/19 15:44 Freq: Status: Active Protocol: Document 06/17/19 15:45 CGR (Rec: 06/17/19 16:02 CGR [id number]) Cognitive Factors Limiting Selfcare Function Cognitive Ability Level of Alertness Alert Patient Orientation Name,Age,Birthday,Month,Date, Year,Day of Week,Place, Situation Attention Span Ability Capable of Focused Attention, Capable of Sustained Attention Ability to Follow Commands Able to Follow Multi-Step Commands Memory Description No Deficits Noted Safety Awareness No Deficits Noted Problem Solving Ability No deficits Noted Executive Function Ability No Deficits Noted Abstract Thinking Ability No Deficits Noted OT- Vision and Hearing OT- Hearing Assessment OT- Hearing Assessment Hearing Impaired OT- Vision Assessment Visual Acuity WFL Visual Attentiveness WFL Occular Pursuits WFL Visual Convergence WFL Visual Hercules WFL Vision Assessment Comments Pt wears bifocals. M7 OT- IP Mobility and Balance Start: 06/17/19 15:44 Freq: Status: Active Protocol: Document 06/17/19 15:45 CGR (Rec: 06/17/19 16:02 CGR [id number]) OT- Bed Mobility Assessment Supine to Sit Supine to Sit Assist Independent Sit to Supine Sit to Supine Assist Independent Scooting Scooting to Edge of Bed Independent Scooting Up and Down in Bed Independent OT-Transfer Assessment Sit to and From Stand Sit to and from Stand Independent Transfers Transfer Ability Independent Technique Transfer Destination Bed,Bedside Commode,Shower Stall,Toilet Transfer Technique Stand Step Pivot Devices Transfer Assistive Devices None Comments Mobility Comments Mobility around the room with IND. OT- Gait Assessment Gait Gait Assistance Required: Independent Assistive Devices Assistive Device None OT- Balance Assessment Sitting Balance and Reactions Static Sitting Balance Ability Normal Dynamic Sitting Balance Ability Good Standing Balance and Reactions Static Standing Balance Ability Normal Dynamic Standing Balance Ability Good M8 OT- IP Objective Assessments Start: 06/17/19 15:44 Freq: Status: Active Protocol: Document 06/17/19 15:45 CGR (Rec: 06/17/19 16:02 CGR [id number]) OT Gross Range of Motion Upper Extremity Range of Motion Assessment Within Functional Limits OT Strength Upper Extremity Strength Assessment Within Functional Limits Hand Cold Roll Catcher Strength Hand Dominance Right Comments Strength Comments Noted weakness to the L shld but pt states he has a past injury with pain to the L shld . OT- Coordination Assessment Upper Extremity Finger to Nose Test Within Functional Limits Finger Tapping Test Within Functional Limits OT-Muscle Tone Assessment Muscle Tone WNL Yes OT Sensation Assessment Comments Summary Comments Not deficits noted Edema Edema Absent M9 OT- IP Assessment and Plan Start: 06/17/19 15:44 Freq: Status: Active Protocol: Document 06/17/19 15:45 CGR (Rec: 06/17/19 16:02 CGR [id number]) OT Summary Assessment and Plan Potential Rehabilitation Potential Excellent Analytic Complexity at Evaluation Low Summary Progress Towards Goals Safe For Discharge,Goals Met Assessment Summary Pt presents as a low complexity evaluation. Pt is at his baseline. No further OT needs. Frequency of Treatment Frequency Of Treatment Discharge Discharge Recommendations OT Discharge Recommendations Home
== END 2019-06-17 17:09 | disposition home or self-care (01) ==
LOC: ED 09:03 → AC 10:09
PROVIDERS: Admitting Provider Internal Medicine; Emergency Provider Emergency Medicine; PCP Physician Assistant; Visit Provider Internal Medicine
DX: G45.9 Transient cerebral ischemic attack, unspecified (principal); R29.818 Other symptoms and signs involving the nervous system; R53.1 Weakness; I10 Essential (primary) hypertension; F32.9 Major depressive disorder, single episode, unspecified; F10.20 Alcohol dependence, uncomplicated; K21.9 Gastro-esophageal reflux disease without esophagitis; E78.5 Hyperlipidemia, unspecified
CPT/HCPCS: 36415; 70450; 70548; 70553; 71045; 80048; 80053; 80061; 80320; 83036; 83690; 83735; 84443; 84484; 85025; 85610; 85730; 92523; 93005; 93010; 93306; 94762; 96361; 96372; 96374; 96376; 97161; 97165; 97535; 99283; 99285; G0378; A9579; J1644

== ENCOUNTER → 2019-11-10 11:24 | Outpatient (CLI) | payer MEDICARE, SELFPAY ==
[2019-06-16 13:34] VITALS: BMI 32.0
[2019-11-10 12:47] LABS: Add Manual Diff / Slide Review NO; Basophils Absolute Auto 0 /uL (0-100); Basophils Percent Auto 0.5 % (0-2); Eosinophils Absolute Auto 100 /uL (0-450); Eosinophils Percent Auto 1.9 % (2-4); Hemoglobin 14.7 g/dL (13.5-17.5); Lymphocytes Absolute Auto 2700 /uL (1100-4500); Lymphocytes Percent Auto 37.6 % (25-40); Mean Corpuscular HGB Conc 35.1 % (30-36); Mean Corpuscular Hemoglobin 31.5 PG (26-34); Mean Corpuscular Volume 89.7 fL (80-100); Monocytes Absolute Auto 600 /uL (0-900); Monocytes Percent Auto 8.5 % (3-14); Neutrophils Absolute Auto 3700 /uL (1500-7000); Neutrophils Percent Auto 51.5 % (50-75); Platelet Count 208 X10^3/uL (150-400); Red Blood Cell Count 4.68 X10^6/uL (4.5-5.9); Red Cell Distribution Width 12.6 % (11.6-14.8); White Blood Cell Count 7.2 X10^3/uL (4.5-11.0)
[2019-11-10 13:16] LABS: Alanine Aminotransferase 35 IU/L (<50); Albumin 4.6 g/dL (3.5-5.0); Albumin Globulin Ratio 1.8 (1.0-2.8); Alkaline Phosphatase 53 U/L (38-126); Aspartate Aminotransferase 30 IU/L (17-59); BUN Creatinine Ratio 17.1 (6-22); Bilirubin Total 1.1 mg/dL (0.2-1.3); Blood Urea Nitrogen 12 mg/dL (9-20); Calcium 9.6 mg/dL (8.4-10.2); Carbon Dioxide 30 mmol/L (22-32); Chloride 89 mmol/L (98-107); Estimated Glomerular Filt Rate > 60.0 mL/min (>60); Globulin 2.6 g/dL (1.7-4.1); Glucose 98 mg/dL (80-110); HEMOLYSIS < 15 (0-50); Potassium 3.6 mmol/L (3.4-5.1); Sodium 132 mmol/L (137-145); Total Protein 7.2 g/dL (6.3-8.2)
== END ==
PROVIDERS: PCP Student in an Organized Health Care Education/Training Program; Referring Provider Student in an Organized Health Care Education/Training Program; Visit Provider Student in an Organized Health Care Education/Training Program
DX: I10 Essential (primary) hypertension (principal); F32.9 Major depressive disorder, single episode, unspecified; K21.9 Gastro-esophageal reflux disease without esophagitis; E78.5 Hyperlipidemia, unspecified
CPT/HCPCS: 36415; 80053; 85025

== ENCOUNTER → 2020-08-30 10:22 | Outpatient (CLI) | payer MEDICARE, SELFPAY ==
[2020-08-02 15:43] VITALS: BMI 32.0
[2020-08-30 11:17] LABS: COVID19 -Nasal RAPID Negative (Negative)
== END ==
PROVIDERS: PCP Student in an Organized Health Care Education/Training Program; Visit Provider Surgery
DX: Z01.812 Encounter for preprocedural laboratory examination (principal); Z20.828 Contact with and (suspected) exposure to other viral communicable diseases
CPT/HCPCS: 87635; C9803

== ENCOUNTER 2020-08-31 10:20 | Day surgery (SDC) | payer MEDICARE, SELFPAY ==
[2020-08-02 15:43] VITALS: BMI 32.0
[2020-08-31] VITALS (10 sets, daily range): BP systolic 101–175; BP diastolic 64–93; PULSE 72–98; RESP 10–18; TEMP 36.2–37; O2SAT 91–100; BMI 31.3
--- NOTE | 2020-08-31 | PATH_ITS ---
[facility] Accession Number: [id number] . 01 Material submitted: . PART A: colon - SMALL POLYPS AT 100CM PART B: colon - POLYP AT 25CM PART C: colon - POLYP AT 20CM . 02 Diagnosis: A. Colon Polyps at 100 cm, Biopsies: Tubular adenoma x2. . B. Colon Polyp at 25 cm, Biopsy: Hyperplastic polyp. . C. Colon Polyp at 20 cm, Biopsy: Hyperplastic polyp. MRV 09/04/2020 1054 Local . 02 Electronically signed: . Berto Scruggs MD, PhD, Pathologist NPI- [id number] . 01 Gross description: . Part A: SMALL POLYPS AT 100CM: Received in formalin are 2 fragment(s) of mcgill, soft tissue measuring 0.3 x 0.3 x 0.3 cm to 0.3 x 0.3 x 0.2 cm submitted entirely in 1 cassette(s) Part B: POLYP AT 25CM: Received in formalin is 1 fragment(s) of mcgill, soft tissue measuring 0.3 x 0.3 x 0.2 cm submitted entirely in 1 cassette(s) Part C: POLYP AT 20CM: Received in formalin is 1 fragment(s) of mcgill, soft tissue measuring 0.3 x 0.3 x 0.2 cm submitted entirely in 1 cassette(s) /QBJ 09/01/2020 1026 Local . 02 Pathologist provided ICD-10: D12.6, K63.5 . 02 CPT . 500319, 859621, [id number] Performed at: 01 [facility] [address] [place] [address] [address] [facility], [place], [place] [id number] MD Filipe Avilez MD Phone: [phone] Performed at: 02 [facility] [place] [address] [place] [id number] MD Monica Molina MD Phone: [phone]
[2020-08-31] MEDS: SODIUM CHLORIDE 0.9% 1,000 ML 200 ML IV (11:07)
--- NOTE | 2020-08-31 11:45 | PM.PREOP ---
Pre-operative Note COVID-19 COVID-19 status: Negative Result date/Date tested (Pos, Neg/Pending): 08/31/20 Interval Note History & Physical reviewed/Exam performed by Physician: Yes Changes to H&P: No ASA Class (for procedural sedation): II
--- NOTE | 2020-08-31 11:48 | P.OP.ENDO_ITS ---
Operative Date/Time/Diagnoses Date of procedure: 08/31/20 Time of procedure: 11:48 Pre-op diagnosis: Positive fit test Post-op diagnosis: other (4 small polyps) Procedure & Clinicians Study performed: Colonoscopy Procedural sedation performed by the endoscopist Polypectomy x 4 with Jumbo forceps Same procedure as scheduled: Yes Indications: Positive fit test, never had a colonoscopy Surgeon: Claudia Singh Procedure Notes SCOAP/Timeout: Performed Procedure in detail: The patient was brought to the room and placed in left lateral decubitus position with all bony prominences padded. A time-out was performed and then the patient was given procedural sedation starting with 4 mg of Versed and 100 mcg of fentanyl. Total of 8 mg of Versed and 150 micro g of fentanyl were given for the entire procedure. Vitals were monitored throughout the procedure and remained stable. Once adequately sedated, the procedure was begun. A rectal exam was performed revealing no abnormalities. The colonoscope was then introduced to the rectum and advanced to the cecum in the usual fashion. The cecum was identified by the appendiceal orifice, the mucosal tri- fold, and the ileocecal valve. The scope was then retracted while rotating side to side and examining each mucosal fold. For small polyps were found within the colon, 2 at 100 cm in the ascending colon, 1 at 25 cm in the rectum, and 1 at 20 cm in the rectum. All were removed with Jumbo forceps and sent for pathology. All appeared to be benign adenomatous polyps. Extensive diverticulosis was seen throughout the descending and sigmoid colon. At the conclusion of the procedure retroflexion was performed and small grade 1-2 internal hemorrhoids without stigmata of bleeding were seen. The scope was then withdrawn from the rectum the procedure was concluded. The patient tolerated the procedure well and was transferred to the PACU in stable condition. Scope withdrawal time: 18 Sedation minutes: 28 Findings: diverticulosis and polyp Specimen(s): other (4 small polyps) Complications: none Impression: For small polyps, no evidence of advanced polyps or cancers in the colon Post-procedure Recommendations: Colonscopy in 5 years (Depending on pathology results. Depending on clinical appropriateness and patient health at that age.) Follow up: as needed Disposition: PACU
[2020-08-31] MEDS: fentaNYL 250 MCG/5 ML INJ IV (11:57)
[2020-08-31] MEDS: MIDAZOLAM 5 MG/5 ML VIAL IV (11:57)
== END 2020-08-31 13:16 | disposition home or self-care (01) ==
PROVIDERS: PCP Student in an Organized Health Care Education/Training Program; Referring Provider Student in an Organized Health Care Education/Training Program; Visit Provider Surgery
PROC: 0DJD8ZZ Inspection of Lower Intestinal Tract, Via Natural or Artificial Opening Endoscopic (ICD-10-PCS; CPT 45378; principal; 2020-08-31 11:30)
DX: R19.5 Other fecal abnormalities (principal); I10 Essential (primary) hypertension; K21.9 Gastro-esophageal reflux disease without esophagitis; Z86.73 Personal history of transient ischemic attack (TIA), and cerebral infarction without residual deficits; F32.9 Major depressive disorder, single episode, unspecified; F10.20 Alcohol dependence, uncomplicated; K64.0 First degree hemorrhoids; K57.30 Diverticulosis of large intestine without perforation or abscess without bleeding; D12.6 Benign neoplasm of colon, unspecified
CPT/HCPCS: 45380; 99152; 99153; J2250; J3010

== ENCOUNTER 2023-02-23 14:21 | Inpatient (IN) | payer MEDICARE, OTHER, SELFPAY ==
[2020-08-02 15:43] VITALS: BMI 32.0
[2023-02-23] VITALS (15 sets, daily range): BP systolic 164–196; BP diastolic 74–89; PULSE 51–59; RESP 10–16; TEMP 36.9; O2SAT 97–100; BMI 28.1
--- NOTE | 2023-02-23 14:39 | DI.RAD.S_ITS ---
PROCEDURE: XR CHEST 1V INDICATIONS: chest pain TECHNIQUE: One view of the chest was acquired. COMPARISON: [facility], CR, XR CHEST 1V, 06/16/2019, 7:48. FINDINGS: Surgical changes and devices: None. Lungs and pleura: Minimal platelike atelectasis left lung base. No pneumothorax or pleural effusion Mediastinum: Mediastinal contours appear normal. Heart size is normal. Bones and chest wall: No suspicious bony lesions. Overlying soft tissues appear unremarkable. IMPRESSION: Minimal platelike atelectasis in left lung base Approved by: Jovany Hernandez M.D. on 02/23/2023 at 15:52
[2023-02-23 15:10] LABS: INR 1.1 (0.9-1.3); Prothrombin Time 12.4 SECONDS (10.1-12.7)
[2023-02-23 15:13] LABS: PTT Partial Thromboplastin Tim 27 SECONDS (26-36)
[2023-02-23 15:14] LABS: Add Manual Diff / Slide Review NO; Basophils Absolute Auto 0 /uL (0-100); Basophils Percent Auto 0.5 % (0-2); Eosinophils Absolute Auto 100 /uL (0-450); Hematocrit 41.4 % (41-53); Hemoglobin 14.4 g/dL (13.5-17.5); Lymphocytes Absolute Auto 1600 /uL (1100-4500); Lymphocytes Percent Auto 22.8 % (25-40); Mean Corpuscular HGB Conc 34.8 % (30-36); Mean Corpuscular Hemoglobin 32.1 PG (26-34); Mean Corpuscular Volume 92.1 fL (80-100); Monocytes Absolute Auto 500 /uL (0-900); Monocytes Percent Auto 6.9 % (3-14); Neutrophils Absolute Auto 4900 /uL (1500-7000); Neutrophils Percent Auto 68.8 % (50-75); Platelet Count 203 X10^3/uL (150-400); Red Blood Cell Count 4.49 X10^6/uL (4.5-5.9); Red Cell Distribution Width 12.7 % (11.6-14.8); White Blood Cell Count 7.2 X10^3/uL (4.5-11.0)
[2023-02-23 15:15] LABS: Alanine Aminotransferase 47 IU/L (<50); Albumin 4.3 g/dL (3.5-5.0); Albumin Globulin Ratio 1.6 (1.0-2.8); Alkaline Phosphatase 57 U/L (38-126); Aspartate Aminotransferase 36 IU/L (17-59); BUN Creatinine Ratio 19.4 (6-22); Bilirubin Total 1.3 mg/dL (0.2-1.3); Blood Urea Nitrogen 12 mg/dL (9-20); Calcium 9.2 mg/dL (8.4-10.2); Carbon Dioxide 28 mmol/L (22-32); Chloride 90 mmol/L (98-107); Creatine Kinase 41 U/L (55-170); Estimated Glomerular Filt Rate > 60 mL/min (>60); Globulin 2.7 g/dL (1.7-4.1); Glucose 136 mg/dL (80-110); HEMOLYSIS 18 (0-50); Lipase 52 U/L (23-300); Magnesium 1.9 mg/dL (1.6-2.3); Potassium 3.5 mmol/L (3.4-5.1); Sodium 126 mmol/L (137-145)
--- NOTE | 2023-02-23 15:20 | DI.CT.S_ITS ---
PROCEDURE: CT ANGIO HEAD AND NECK INDICATIONS: dizziness x 5 days. h/o TIA TECHNIQUE: Pre-contrast 4.5 mm thick sections acquired from the foramen magnum to the vertex. After the administration of intravenous contrast, 1 mm thick sections acquired from the aortic arch through the [place] of [place]. Post-contrast 4.5 mm thick sections then re-acquired from the foramen magnum to the vertex. 3-dimensional tgiieaf-jyjfinmdv-fevuoqmehw (MIP) and/or volume rendering reformats were acquired of the central intracranial vasculature and neck separately. For radiation dose reduction, the following was used: automated exposure control, adjustment of mA and/or kV according to patient size. COMPARISON: None. FINDINGS: Image quality: Excellent. BRAIN: CSF spaces: Ventricles are normal in size and shape. Basal cisterns are patent. No extra-axial fluid collections. Brain: No midline shift. No intracranial bleeds or masses. Avendano-white matter interface appears intact. Skull and face: Calvarium and facial bones appear intact, without suspicious lesions. Orbits appear normal. Sinuses: Sinuses and mastoids are clear. HEAD CT ANGIOGRAPHY: Anterior circulation: Intracranial internal carotid arteries are normal in size and flow. The flow within the paired anterior cerebral arteries is normal and symmetric. The flow within the middle cerebral arteries is normal and symmetric. The anterior communicating artery is seen. No aneurysms are seen. Posterior circulation: Visualized portions of the vertebral arteries demonstrate normal caliber, and join to form a normal appearing basilar artery. Irregular stenosis noted involving the proximal portion of the right P2 MEAT MOLDER over approximately 1 cm without occlusion. No aneurysms are seen. NECK CT ANGIOGRAPHY: Carotid system: The great vessels demonstrate a conventional anatomy as they arise from the aortic arch. The origins of the common carotid arteries appear patent. The common carotid arteries demonstrate normal caliber and courses. Mild atherosclerotic calcification both proximal ICA noted without stenosis. Posterior circulation: The origins of the vertebral arteries both appear widely patent. The more superior extracranial portions of both vertebral arteries also demonstrate normal courses and calibers. They join to form a normal appearing basilar artery. Soft tissues: Visualized neck soft tissues demonstrate no suspicious abnormalities. Bones: No suspicious bony lesions. Visualized cervical spine appears normally aligned. Degenerative disc disease and arthropathy noted in lower lumbar spine. IMPRESSION: Focal irregular stenosis in the proximal right P2 MEAT MOLDER noted over approximately 1 cm with mild poststenotic dilation. 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 Approved by: Jovany Hernandez M.D. on 02/23/2023 at 15:45
[2023-02-23 15:27] LABS: Troponin I < 0.012 ng/mL (0.01-0.034)
--- NOTE | 2023-02-23 16:16 | ED_ITS ---
HPI - Dizziness General Chief Complaint: Dizziness Stated Complaint: dizzy T-5 Time Seen by Provider: 02/23/23 15:40 Source: patient Mode of arrival: Ambulatory History of Present Illness HPI Narrative: Patient here for dizziness/lightheadedness, feels very off balance. Onset 5 days ago. No syncope no fall. Worse dizziness with changing position or sitting up. No hearing changes. Has had nausea with this. No visual changes otherwise. Denies any headache. No slurred speech or facial droop or numbness or tingling or weakness in the limbs. Patient has history of TIA 2 years ago had slurred speech and difficulty walking. Since then his symptoms have resolved. He is on baby aspirin a day. Patient was evaluated in May 2019 and had normal MRI of the brain and echocardiogram. Patient states these are different symptoms. He is not seen any provider for this complaint. Related Data Home Medications Medication Instructions Recorded Confirmed atorvastatin 40 mg tablet 40 mg PO DAILY 06/16/19 02/23/23 citalopram 20 mg tablet 10 mg PO DAILY 06/16/19 02/23/23 naproxen sodium 220 mg tablet 220 mg PO PRN PRN Back Pain 06/16/19 02/23/23 (Aleve) omeprazole 20 mg capsule,delayed 20 mg PO DAILY 06/16/19 02/23/23 release acetaminophen 325 mg capsule 325 mg PO QID PRN Pain (Scale 02/23/23 02/23/23 (Tylenol) Score 1-3) gabapentin 100 mg capsule 200 mg PO TID 02/23/23 02/23/23 metoprolol succinate 25 mg 25 mg PO DAILY 02/23/23 02/23/23 tablet,extended release 24 hr valsartan 320 mg tablet 320 mg PO DAILY 02/23/23 02/23/23 Previous Rx's Medication Instructions Recorded aspirin 81 mg tablet,delayed 81 mg PO DAILY #30 tabs 06/17/19 release clopidogrel 75 mg tablet 75 mg PO DAILY #30 tabs 02/25/23 meclizine 12.5 mg tablet 25 mg PO Q6HR PRN Vertigo #12 tabs 02/25/23 sodium chloride 1,000 mg soluble 1,000 mg PO TID #20 tabs 02/25/23 tablet Allergies Allergy/AdvReac Type Severity Reaction Status Date / Time amlodipine Allergy Unknown Verified 06/05/23 14:38 Review of Systems Review of Systems Narrative: GENERAL: negative chills, fatigue, malaise, fever, sweats. HEENT: negative sinus pain, ear pain, sore throat RESPIRATORY: negative dyspnea, cough CARDIOVASCULAR: negative chest pain, palpitations GASTROINTESTINAL: Positive nausea, negative vomiting, abdominal pain : negative dysuria, frequency, hematuria MUSCULOSKELETAL: negative muscle or bony pain SKIN: negative rash, skin lesions NEUROLOGIC: negative weakness, numbness, positive dizziness ROS Unobtainable: All systems reviewed & are unremarkable except as noted in HPI and below Patient History Medical History Alcohol dependence Depression GERD (gastroesophageal reflux disease) Hyperlipidemia Hypertension Surgical History History of prostatectomy History of tonsillectomy Family History Father CAD (coronary artery disease) Mother No problems noted. Social History marital status: unknown household members: children lives independently: Yes occupational status: previously employed Smoking Status: Former smoker alcohol intake: current substance use type: marijuana Smoking Status: Former smoker alcohol intake frequency: 3 or more drinks per day Alcohol type: hard liquor Substance Use Type: marijuana Exam Narrative Exam Narrative: GENERAL: in no distress, not toxic not dyspneic HEAD: Normocephalic. EYES: Pupils equal round ENT: Mucous membranes moist. NECK: Trachea midline. CARDIOVASCULAR: Regular rate and rhythm without murmurs RESPIRATORY: Clear to auscultation. Breath sounds equal bilaterally. No wheezes, rales, or rhonchi. GASTROINTESTINAL: Abdomen soft, non-tender EXTREMITIES: No gross deformities. BACK: No flank tenderness. NEURO: AOx4. Fast exam is negative. Clear speech no facial droop light touch intact bilateral face hands and legs with strong equal case sealer. Negative pronator drift. Increased dizziness with sitting up and also with turning head to left. SKIN: Warm and dry PSYCH: Not anxious, is cooperative Initial Vital Signs Initial Vital Signs: Vital Signs Temperature 98.5 F 02/23/23 14:33 Pulse Rate 58 L 02/23/23 14:33 Respiratory Rate 16 02/23/23 14:33 Blood Pressure 184/81 H 02/23/23 14:33 Pulse Oximetry 97 02/23/23 14:33 Oxygen Delivery Method Room Air 02/23/23 14:33 Course Orders Ordered: Discontinued Medications Acetaminophen (Acetaminophen 325 Mg Tablet) 650 mg PO Q6H PRN PRN Reason: Fever/Mild Pain (1-3) Aspirin (Aspirin 81 Mg Chew Tab) 324 mg PO NOW ONE Stop: 02/23/23 14:39 Last Admin: 02/23/23 16:39 Dose: Not Given Documented By: KELSEA Aspirin (Aspirin Ec 81 Mg Tablet) 81 mg PO DAILY [facility] Last Admin: 02/25/23 08:36 Dose: 81 mg Documented By: Admin: 02/24/23 08:28 Dose: 81 mg Documented By: YADIRA Atorvastatin Calcium (Atorvastatin 20 Mg Tablet) 40 mg PO DAILY [facility] Last Admin: 02/25/23 08:37 Dose: 40 mg Documented By: Admin: 02/24/23 08:28 Dose: 40 mg Documented By: YADIRA Clopidogrel Bisulfate (Clopidogrel 75 Mg Tablet) 75 mg PO DAILY [facility] Last Admin: 02/25/23 08:37 Dose: 75 mg Documented By: Admin: 02/24/23 08:28 Dose: 75 mg Documented By: YADIRA Folic Acid (Folic Acid 1 Mg Tablet) 1 mg PO DAILY [facility] Last Admin: 02/25/23 08:37 Dose: 1 mg Documented By: YADIRA Heparin Sodium (Porcine) (Heparin 5,000 Unit/Ml Vial) 5,000 unit SUBCUT BID [facility] Last Admin: 02/25/23 08:36 Dose: 5,000 unit Documented By: Admin: 02/24/23 21:30 Dose: 5,000 unit Documented By: Admin: 02/24/23 08:28 Dose: 5,000 unit Documented By: Admin: 02/23/23 22:17 Dose: 5,000 unit Documented By: DIANE Sodium Chloride (Normal Saline 0.9%) 1,000 mls @ 1,000 mls/hr IV BOLUS ONE Stop: 02/23/23 17:20 Last Infusion: 02/23/23 18:24 Dose: 0 mls/hr Documented By: Admin: 02/23/23 16:38 Dose: 1,000 mls/hr Documented By: KELSEA Sodium Chloride (Normal Saline 0.9%) 1,000 mls @ 100 mls/hr IV CONT [facility] Last Admin: 02/24/23 09:32 Dose: 100 mls/hr Documented By: Infusion: 02/24/23 08:31 Dose: 100 mls/hr Documented By: Admin: 02/23/23 22:16 Dose: 100 mls/hr Documented By: DIANE Lorazepam (Lorazepam 1 Mg Tablet) 0 mg PO CIWAPRN PRN; Protocol PRN Reason: Alcohol Withdrawal Meclizine HCl (Meclizine Hcl 12.5 Mg Tablet) 25 mg PO NOW ONE Stop: 02/23/23 16:16 Last Admin: 02/23/23 16:38 Dose: 25 mg Documented By: KELSEA Meclizine HCl (Meclizine Hcl 12.5 Mg Tablet) 25 mg PO Q6HR PRN PRN Reason: Vertigo Multivitamins (Multivitamin 1 Tablet) 1 tab PO DAILY [facility] Last Admin: 02/25/23 08:37 Dose: 1 tab Documented By: BT Naloxone HCl (Naloxone 0.4 Mg/Ml Vial) 0.2 mg IV Q2MIN PRN PRN Reason: Opiate Reversal Ondansetron HCl (Ondansetron 4 Mg/2 Ml Inj) 4 mg IV Q8HR PRN PRN Reason: Nausea And Vomiting Last Admin: 02/24/23 21:34 Dose: 4 mg Documented By: TLS Sodium Chloride (Sodium Chloride 1,000 Mg Tablet) 1,000 mg PO TID [facility] Last Admin: 02/25/23 08:37 Dose: 1,000 mg Documented By: Admin: 02/24/23 21:15 Dose: 1,000 mg Documented By: AGColt Admin: 02/24/23 16:37 Dose: 1,000 mg Documented By: YADIRA Thiamine HCl (Thiamine 100 Mg Tablet) 100 mg PO DAILY [facility] Stop: 02/28/23 09:01 Last Admin: 02/25/23 08:37 Dose: 100 mg Documented By: YADIRA Vital Signs Vital signs: Vital Signs - 8 hr 02/23/23 14:33 02/23/23 15:21 02/23/23 15:23 Temperature 98.5 F Pulse Rate 58 L 58 L 54 L Respiratory Rate 16 13 Blood Pressure 184/81 H Pulse Oximetry 97 99 97 Oxygen Delivery Method Room Air 02/23/23 15:23 02/23/23 15:30 02/23/23 15:31 Temperature Pulse Rate 54 L Respiratory Rate 10 L Blood Pressure 188/80 H 164/74 H Pulse Oximetry 98 Oxygen Delivery Method 02/23/23 15:31 02/23/23 16:00 02/23/23 16:01 Temperature Pulse Rate 55 L 55 L 55 L Respiratory Rate 12 Blood Pressure Pulse Oximetry 98 98 99 Oxygen Delivery Method 02/23/23 16:01 02/23/23 16:30 02/23/23 16:30 Temperature Pulse Rate 54 L Respiratory Rate Blood Pressure 181/82 H 185/88 H Pulse Oximetry 100 Oxygen Delivery Method 02/23/23 17:00 02/23/23 17:01 02/23/23 17:01 Temperature Pulse Rate 51 L 53 L Respiratory Rate Blood Pressure 178/74 H Pulse Oximetry 98 100 Oxygen Delivery Method 02/23/23 17:30 02/23/23 17:30 Temperature Pulse Rate 54 L Respiratory Rate Blood Pressure 192/88 H Pulse Oximetry 99 Oxygen Delivery Method MDM - Dizziness Lab Data 02/25/23 05:42 02/25/23 05:42 Labs: Lab Results 02/23/23 02/23/23 02/23/23 Range/Units 14:46 14:46 14:46 WBC 7.2 (4.5-11.0) X10^3/uL RBC 4.49 L (4.5-5.9) X10^6/uL Hgb 14.4 (13.5-17.5) g/dL Hct 41.4 (41-53) % MCV 92.1 (80-100) fL MCH 32.1 (26-34) PG MCHC 34.8 (30-36) % RDW 12.7 (11.6-14.8) % Plt Count 203 (150-400) X10^3/uL Neut % (Auto) 68.8 (50-75) % Lymph % (Auto) 22.8 L (25-40) % [place] % (Auto) 6.9 (3-14) % Eos % (Auto) 1.0 L (2-4) % Baso % (Auto) 0.5 (0-2) % Neut # (Auto) 4900 (2444-8671) /uL Lymph # (Auto) 1600 (9463-8815) /uL [place] # (Auto) 500 (0-900) /uL Eos # (Auto) 100 (0-450) /uL Baso # (Auto) 0 (0-100) /uL PT 12.4 (10.1-12.7) SECONDS INR 1.1 (0.9-1.3) APTT 27 (26-36) SECONDS Sodium 126 L (137-145) mmol/L Potassium 3.5 (3.4-5.1) mmol/L Chloride 90 L (98-107) mmol/L Carbon Dioxide 28 (22-32) mmol/L BUN 12 (9-20) mg/dL Creatinine 0.62 L (0.66-1.25) mg/dL Estimated GFR > 60 (>60) mL/min BUN/Creatinine Ratio 19.4 (6-22) Glucose 136 H (80-110) mg/dL Calcium 9.2 (8.4-10.2) mg/dL Magnesium 1.9 (1.6-2.3) mg/dL Total Bilirubin 1.3 (0.2-1.3) mg/dL AST 36 (17-59) IU/L ALT 47 (<50) IU/L Alkaline Phosphatase 57 (38-126) U/L Total Creatine Kinase 41 L (55-170) U/L CK-MB (CK-2) TNP CK-MB (CK-2) Rel Index TNP Troponin I < 0.012 (0.01-0.034) ng/mL Total Protein 7.0 (6.3-8.2) g/dL Albumin 4.3 (3.5-5.0) g/dL Globulin 2.7 (1.7-4.1) g/dL Albumin/Globulin Ratio 1.6 (1.0-2.8) Lipase 52 (23-300) U/L Urine Dip Bedside Urine Glucose Negative Bedside Urine Bilirubin - Negative Bedside Urine Ketone - Negative Urine Specific Eckerman 1.025 Bedside Urine Occult Blood - Negative Bedside Urine pH 6.0 Bedside Urine Protein - Negative Bedside Urine Urobilinogen - Negative Bedside Urine Nitrite - Negative Bedside Urine Leukocytes - Negative Esterase Imaging Data Chest x-ray: Radiologist's Impression: [address] [address] XRay Report Signed Patient: Alexandro Martinez MR#: [id number] : 1940 Acct:[id number] Age/Sex: 82 / M Date of Service: 02/23/23 Loc: ED Accession Number: [id number] ?? Procedure: XR chest 1V Ordering Provider: Mac Barry MD PROCEDURE:? XR CHEST 1V ? INDICATIONS:? chest pain ? TECHNIQUE:? One view of the chest was acquired.? ? COMPARISON:? [facility], CR, XR CHEST 1V, 06/16/2019, 7:48. ? FINDINGS:? ? Surgical changes and devices:? None.? ? Lungs and pleura:? Minimal platelike atelectasis left lung base.? No pneumothorax or pleural effusion ? Mediastinum:? Mediastinal contours appear normal.? Heart size is normal.? ? Bones and chest wall:? No suspicious bony lesions.? Overlying soft tissues appear unremarkable.? ? IMPRESSION:? ? Minimal platelike atelectasis in left lung base ? ? ? Approved by: Jovany Hernandez M.D. on 02/23/2023 at 15:52? CTA - brain/neck: Radiologist's Impression: [place] [address] CT Scan Report Signed Patient: Alexandro Martinez MR#: [id number] : 1940 Acct:[id number] Age/Sex: 82 / M Date of Service: 02/23/23 Loc: ED Accession Number: [id number] ?? Procedure: CT angio head and neck Ordering Provider: Mac Barry MD PROCEDURE:? CT ANGIO HEAD AND NECK ? INDICATIONS:? dizziness x 5 days. h/o TIA ? TECHNIQUE:? Pre-contrast 4.5 mm thick sections acquired from the foramen magnum to the vertex.? After the administration of intravenous contrast, 1 mm thick sections acquired from the aortic arch through the [place] of [place].? Post-contrast 4.5 mm thick sections then re- acquired from the foramen magnum to the vertex.? 3-dimensional umgsizb-leskqrtly-gxxjhanlsz (MIP) and/or volume rendering reformats were acquired of the central intracranial vasculature and neck separately. For radiation dose reduction, the following was used:? automated exposure control, adjustment of mA and/or kV according to patient size.? ? COMPARISON:? None. ? FINDINGS:? Image quality:? Excellent.? ? BRAIN:? CSF spaces:? Ventricles are normal in size and shape.? Basal cisterns are patent.? No extra-axial fluid collections.? ? Brain:? No midline shift.? No intracranial bleeds or masses.? [place]-white matter interface appears intact.? ? Skull and face:? Calvarium and facial bones appear intact, without suspicious lesions.? Orbits appear normal.? ? Sinuses:? Sinuses and mastoids are clear.? ? HEAD CT ANGIOGRAPHY:? Anterior circulation:? Intracranial internal carotid arteries are normal in size and flow.? The flow within the paired anterior cerebral arteries is normal and symmetric.? The flow within the middle cerebral arteries is normal and symmetric.? The anterior communicating artery is seen.? No aneurysms are seen.? ? Posterior circulation:? Visualized portions of the vertebral arteries demonstrate normal caliber, and join to form a normal appearing basilar artery.? 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 No aneurysms are seen.? ? NECK CT ANGIOGRAPHY:? Carotid system:? The great vessels demonstrate a conventional anatomy as they arise from the aortic arch.? The origins of the common carotid arteries appear patent.? The common carotid arteries demonstrate normal caliber and courses.? Mild atherosclerotic calcification both proximal ICA noted without stenosis.? ? Posterior circulation:? The origins of the vertebral arteries both appear widely patent.? The more superior extracranial portions of both vertebral arteries also demonstrate normal courses and calibers.? They join to form a normal appearing basilar artery.? ? Soft tissues:? Visualized neck soft tissues demonstrate no suspicious abnormalities.? ? Bones:? No suspicious bony lesions.? Visualized cervical spine appears normally aligned.? Degenerative disc disease and arthropathy noted in lower lumbar spine. ? ? IMPRESSION:? ? 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 ? 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 No evidence of large vessel occlusion, aneurysm or vascular malformation ? Any quantitative measurements of stenosis were performed using NASCET criteria.? Approved by: Jovany Hernandez M.D. on 02/23/2023 at 15:45? MDM Narrative Medical decision making narrative: Patient here for dizziness/lightheadedness, feels very off balance. Onset 5 days ago. No syncope no fall. Worse dizziness with changing position or sitting up. No hearing changes. Has had nausea with this. No visual changes otherwise. Denies any headache. No slurred speech or facial droop or numbness or tingling or weakness in the limbs. Patient has history of TIA 2 years ago had slurred speech and difficulty walking. Since then his symptoms have resolved. He is on baby aspirin a day. Patient was evaluated in May 2019 and had normal MRI of the brain and echocardiogram. Patient states these are different symptoms. He is not seen any provider for this complaint. After history and exam CBC CMP magnesium troponin EKG CT angiogram head and neck normal saline MDM CC: Dizziness Complicating co-morbidities: History of TIA Data collected from: Patient Medical records reviewed: June 16 2019, echocardiogram and MRI done here. Differential considered: Includes but not limited to TIA/stroke/vertigo Exam documented above, pertinent findings include: Fast exam is negative, however dizziness with sitting up and turning head to the left Lab Test results independently reviewed as above. 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 Consultations: 6:15 p.m., spoke with hospitalist, Dr. Valiente, she will admit patient Treatments: Normal saline meclizine aspirin Re-evaluations: 6:00 p.m.. Patient agrees for admission. No significant change with meclizine. Reviewed with him CT angiogram results which are different from MRI MRA results from 2019. Discussion: Appropriate for admission. Patient CT angiogram results are different from 2019 MRI MRA results. No significant change with meclizine here. Patient agrees for admit. I did review with hospitalist agrees for admission. No neurology consult at this time. Patient outside window for endovascular studies or thrombolytic Diagnosis: TIA Discharge Plan Departure Patient Disposition: Admitted as Observation Clinical Impression: TIA (transient ischemic attack) Admit Date/Time: 02/23/23 18:12 Admit Provider: Drea Valiente
[2023-02-23] MEDS: SODIUM CHLORIDE 0.9% 1,000 ML 1000 ML IV (16:38)
[2023-02-23] MEDS: MECLIZINE HCL 12.5 MG TABLET 25 MG PO (16:38)
--- NOTE | 2023-02-23 20:23 | DI.MRI.S_ITS ---
PROCEDURE: MR HEAD/BRAIN WO CON INDICATIONS: tia/cva TECHNIQUE: Non-contrast axial T1 spin echo, axial T2 fast spin echo, sagittal and axial FLAIR, coronal T2 fast spin echo, axial gradient echo, axial diffusion and ADC through the brain. COMPARISON: [facility], MR, MR STROKE, 06/16/2019, 15:19. [facility], CT, CT ANGIO HEAD AND NECK, 02/23/2023, 15:37. FINDINGS: Image quality: Excellent. CSF spaces: Ventricles appear symmetric in size and shape. Basal cisterns are patent. No extra-axial fluid collections. Brain: No intracranial bleeds. There is a dural-based extra-axial mass within the anterior aspect of the right middle cranial fossa, previously demonstrating avid enhancement, and currently measuring roughly 21 mm transverse by 11 mm anteroposterior, which is slightly increased. There is cerebral volume loss for age. There are periventricular and deep white matter chronic small vessel ischemic changes. Brainstem appears normal. Diffusion-weighted images show no acute ischemic insults. No chronic ischemic insults. Normal intravascular flow voids are present. Skull and face: There is high FLAIR signal intensity within the greater wing of the right sphenoid, adjacent to the right middle cranial fossa meningioma. Calvarial bone marrow is otherwise normal in signal. There is possible extension of the right sphenoid wing meningioma into the interpretable fat of the right posterolateral orbit. Orbits are otherwise normal. Sinuses: Sinuses and mastoids are clear. IMPRESSION: 1. No acute intracranial abnormality. No recent infarct. 2. Mild volume loss and small vessel ischemic disease. 3. 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 Nonemergent outpatient follow-up MRI of the orbits with and without intravenous contrast is recommended for further assessment. Dictated by: Rosenda Toribio M.D. on 02/24/2023 at 10:36 Approved by: Rosenda Toribio M.D. on 02/24/2023 at 10:43
--- NOTE | 2023-02-23 20:24 | DI.ECHO.S_ITS ---
[facility]---------+ [facility] +---------+ : : [address] : : : : [address] : : : : Phone: [phone] Echocardiogram Report + + :Name: TRICIA LEWIS Study Date: 02/24/2023 Height: 67 in : :[facility] ReadingLocation: Weight: 180 lb : : Gender: Male BSA: 1.9 m2 : :: 1940 Age: 82 yrs BP: 155/71 mmHg: :Reason For Study: TIA : :Ordering Physician: JUAN DANIEL, : :LANI Performed By: Aleida Ortega : :Referring: LANI FRANCES : + + Interpretation Summary The left ventricle is normal in size and wall thickness. Left ventricular systolic function appears normal without focal wall motion abnormalities. The ejection fraction is estimated to be 60-65%. Diastolic parameters suggest a relaxation abnormality of the left ventricle, consistent with probable normal filling pressures. The right ventricle is normal in size and function. Pulmonary artery pressures cannot be estimated because of the lack of a measurable TR jet velocity. The left atrial size is normal. Right atrial size is normal. There is moderate aortic valve sclerosis. There is no aortic valve stenosis. There is no other significant valvular heart disease. The aortic root is normal size. Procedure: A two-dimensional transthoracic echocardiogram with color flow and Doppler was performed. The study quality was technically adequate. Comparison is made with the echocardiogram of 06/17/2019. The patient was in sinus bradycardia with heart rates between 52-55 bpm during the exam. Left Ventricle: The left ventricle is normal in size and wall thickness. Left ventricular systolic function appears normal without focal wall motion abnormalities. The ejection fraction is estimated to be 60-65%. Diastolic parameters suggest a relaxation abnormality of the left ventricle, consistent with probable normal filling pressures. Right Ventricle: The right ventricle is normal in size and function. Atria: The left atrial size is normal. Right atrial size is normal. There is no Doppler evidence for an interatrial shunt. Mitral Valve: There is mild mitral annular calcification. The mitral valve leaflets appear mildly thickened, but open well. There is trace mitral regurgitation. Aortic Valve: The aortic valve is mildly calcified. There is moderate aortic valve sclerosis. There is no aortic valve stenosis. The peak aortic velocity is 1.7 m/sec. The aortic valve mean gradient is 6.5 mmHg. No aortic regurgitation is present. Tricuspid Valve: The tricuspid valve is normal in structure and function. There is trace tricuspid regurgitation. Pulmonary artery pressures cannot be estimated because of the lack of a measurable TR jet velocity. Pulmonic Valve: The pulmonic valve is not well visualized. There is no pulmonic valvular regurgitation. There is no other significant valvular heart disease. Great Vessels: The aortic root is normal size. The dimensions of the ascending aorta are normal. The IVC is of normal diameter and collapses greater than 50% with a sniff. This suggests a low right atrial pressure of 3 mm Hg. Pericardium/ Pleura There is no pericardial effusion. There is no pleural effusion. MMode/2D Measurements & Calculations LVIDd: 4.7 cm LVOT diam: 2.0 cm LVIDs: 3.1 cm Ao root diam: 3.2 cm FS: 34.5 % asc Aorta Diam: 3.1 cm IVSd: 1.0 cm Ao Arch Diam (Prox Trans): 2.7 cm LVPWd: 0.98 cm LV raygoza. diameter/BSA (cm/m^2): 2.4 LV sys. diameter/BSA (cm/m^2): 1.6 LA A2 area: 20.8 cm2 RA long axis: 5.0 cm LA A4 area: 16.0 cm2 RA area: 12.4 cm2 LA length (vol): 5.4 cm RA vol: 26.5 ml LA vol: 52.0 ml RA : 13.7 ml/m2 LA vol index: 26.9 ml/m2 IVC diam: 1.7 cm RVD1 (basal): 2.8 cm RVD2 (mid): 2.4 cm TAPSE: 2.3 cm Doppler Measurements & Calculations Ao V2 max: 168.2 cm/sec LVOT Max Robert: 86.0 cm/sec Ao V2 mean: 113.2 cm/sec LV V1 max P.0 mmHg Ao max P.8 mmHg LV V1 VTI: 23.9 cm Ao mean P.5 mmHg ROMAN(I,D): 1.7 cm2 Ao V2 VTI: 43.1 cm ROMAN(V,D): 1.6 cm2 sev ratio: 0.55 ROMAN indexed to BSA (cm^2/m^2): 0.90 MV E max robert: 91.9 cm/sec PA V2 max: 85.8 cm/sec MV A max robert: 111.3 cm/sec PA V2 mean: 65.8 cm/sec MV E/A: 0.83 PA mean P.9 mmHg Med Peak E' Robert: 5.6 cm/sec PA pr(Accel): 7.1 mmHg E/E' med: 16.4 Lat Peak E' Robert: 6.2 cm/sec E/E' lat: 14.8 E/e' average: 15.6 MV dec time: 0.32 sec SV(LVOT): 75.1 ml Reading Physician:08:46 AM
[2023-02-23] MEDS: SODIUM CHLORIDE 0.9% 1,000 ML 100 ML IV (22:16)
[2023-02-23] MEDS: HEPARIN 5,000 UNIT/ML VIAL 5000 UNIT SUBCUT (22:17)
[2023-02-24] VITALS (12 sets, daily range): BP systolic 148–184; BP diastolic 67–88; PULSE 52–64; RESP 14–19; TEMP 36.2–37; O2SAT 95–99
[2023-02-24 05:23] LABS: Add Manual Diff / Slide Review NO; Basophils Absolute Auto 0 /uL (0-100); Basophils Percent Auto 0.3 % (0-2); Eosinophils Absolute Auto 100 /uL (0-450); Eosinophils Percent Auto 1.6 % (2-4); Hematocrit 39.2 % (41-53); Hemoglobin 13.7 g/dL (13.5-17.5); Lymphocytes Absolute Auto 2200 /uL (1100-4500); Lymphocytes Percent Auto 27.9 % (25-40); Mean Corpuscular HGB Conc 34.8 % (30-36); Mean Corpuscular Volume 91.8 fL (80-100); Monocytes Absolute Auto 700 /uL (0-900); Monocytes Percent Auto 9.2 % (3-14); Neutrophils Absolute Auto 4800 /uL (1500-7000); Platelet Count 180 X10^3/uL (150-400); Red Blood Cell Count 4.27 X10^6/uL (4.5-5.9); Red Cell Distribution Width 12.6 % (11.6-14.8); White Blood Cell Count 7.9 X10^3/uL (4.5-11.0)
[2023-02-24 05:40] LABS: Blood Urea Nitrogen 11 mg/dL (9-20); Calcium 8.4 mg/dL (8.4-10.2); Carbon Dioxide 27 mmol/L (22-32); Chloride 92 mmol/L (98-107); Cholesterol 147 mg/dL (140-199); Estimated Glomerular Filt Rate > 60 mL/min (>60); Glucose 98 mg/dL (80-110); HDL Cholesterol 49 mg/dL (40-60); HEMOLYSIS < 15 (0-50); LDL Cholesterol Calculated 80 mg/dL (<100); Potassium 3.7 mmol/L (3.4-5.1); Sodium 126 mmol/L (137-145); Triglycerides 89 mg/dL (35-150)
--- NOTE | 2023-02-24 06:17 | P.HP_ITS ---
History of Present Illness History of Present Illness Date Patient Seen: 02/23/23 Time Patient Seen: 20:00 Chief complaint: dizzy T-5 Narrative: Mr. Martinez is an 82M with PMH GERD, HTN, HL, TIA who presents to the hospital with lightheadedness. He notes this started about five days ago. He has chronic issues with poor balance, but the dizziness is not usual for him. No room spinning, no headache. He sometimes feels some nausea with these symptoms. No hearing or visual changes. No lateralizing weakness, no facial droop, no difficulty with swallowing or speech. He has felt that he was not drinking enough liquids, but he has increased that over the last few days by drinking lots of water and his symptoms are not better. He has checked his blood pressure at home and it has been in the 120s which is low for him. He has no vomiting or diarrhea. He is taking HCTZ. In the ED, workup was done, vitals notable for afebrile, heart rate 50s, blood pressure 180s/80s, Sats 97% on room air. Labs reviewed and notable for WBC 7.2, hgb 14.4 plts 203. Na 126, creatinine 0.62. Trop negative. Urine negative. Chest xray reviewed by me and notable for slight atelectasis. CT head with no acute process. 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 He was ordered for aspirin and admitted for further treatment. [facility] Medical History Alcohol dependence Depression GERD (gastroesophageal reflux disease) Hyperlipidemia Hypertension Surgical History History of prostatectomy History of tonsillectomy Family History Father CAD (coronary artery disease) Mother No problems noted. Social History marital status: unknown household members: children lives independently: Yes occupational status: previously employed Smoking Status: Former smoker alcohol intake: current substance use type: marijuana Meds Home Medications and Allergies Home Medications Medication Instructions Recorded Confirmed Type atorvastatin 40 mg tablet 40 mg PO DAILY 06/16/19 02/23/23 History citalopram 20 mg tablet 10 mg PO DAILY 06/16/19 02/23/23 History naproxen sodium 220 mg tablet 220 mg PO PRN PRN Back Pain 06/16/19 02/23/23 History (Aleve) omeprazole 20 mg capsule,delayed 20 mg PO DAILY 06/16/19 02/23/23 History release aspirin 81 mg tablet,delayed 81 mg PO DAILY #30 tabs 06/17/19 02/23/23 Rx release acetaminophen 325 mg capsule 325 mg PO QID PRN Pain (Scale 02/23/23 02/23/23 History (Tylenol) Score 1-3) gabapentin 100 mg capsule 200 mg PO TID 02/23/23 02/23/23 History hydrochlorothiazide 50 mg tablet 25 mg PO DAILY 02/23/23 02/23/23 History metoprolol succinate 25 mg 25 mg PO DAILY 02/23/23 02/23/23 History tablet,extended release 24 hr valsartan 320 mg tablet 320 mg PO DAILY 02/23/23 02/23/23 History Allergies Allergy/AdvReac Type Severity Reaction Status Date / Time amlodipine Allergy Unknown Verified 02/23/23 14:38 Review of Systems Review of Systems Narrative: 14 systems reviewed and negative aside from what is noted in HPI Exam Vital Signs (past 8 hours): - 02/24/23 00:21 02/24/23 00:22 02/24/23 04:56 Temperature 97.2 F L 97.3 F L Pulse Rate 52 L 57 L Pulse Rate [Orthostatic Lying] 52 L Pulse Rate [Orthostatic Sitting] 56 L Pulse Rate [Orthostatic Standing] 60 Respiratory Rate 14 16 Blood Pressure 148/67 H 155/71 H Blood Pressure [Orthostatic Lying] 148/67 H Blood Pressure [Orthostatic Sitting] 151/76 H Blood Pressure [Orthostatic Standing] 177/84 H Pulse Oximetry 96 97 Oxygen Flow Rate 0 0 Oxygen Delivery Method Room Air Oxygen Flow Rate 0 Narrative Exam Narrative: GEN: no acute distress HEENT: moist mucous membranes CV: bradycardic, no murmurs PULM: clear bilaterally ABD: soft, nontender EXT: warm and well perfused NEURO: awake, alert, oriented, no focal deficits Objective Labs 02/24/23 05:01 02/24/23 05:01 Labs: Laboratory Results - last 24 hr 0602/23/23 02/23/23 14:46 14:46 14:46 WBC 7.2 RBC 4.49 L Hgb 14.4 Hct 41.4 MCV 92.1 MCH 32.1 MCHC 34.8 RDW 12.7 Plt Count 203 Neut % (Auto) 68.8 Lymph % (Auto) 22.8 L Rusk % (Auto) 6.9 Eos % (Auto) 1.0 L Baso % (Auto) 0.5 Neut # (Auto) 4900 Lymph # (Auto) 1600 Rusk # (Auto) 500 Eos # (Auto) 100 Baso # (Auto) 0 PT 12.4 INR 1.1 APTT 27 Sodium 126 L Potassium 3.5 Chloride 90 L Carbon Dioxide 28 BUN 12 Creatinine 0.62 L Estimated GFR > 60 BUN/Creatinine Ratio 19.4 Glucose 136 H Calcium 9.2 Magnesium 1.9 Total Bilirubin 1.3 AST 36 ALT 47 Alkaline Phosphatase 57 Total Creatine Kinase 41 L CK-MB (CK-2) TNP CK-MB (CK-2) Rel Index TNP Troponin I < 0.012 Total Protein 7.0 Albumin 4.3 Globulin 2.7 Albumin/Globulin Ratio 1.6 Triglycerides Cholesterol LDL Cholesterol, Calc HDL Cholesterol Lipase 52 02/24/23 02/24/23 05:01 05:01 WBC 7.9 RBC 4.27 L Hgb 13.7 Hct 39.2 L MCV 91.8 MCH 32.0 MCHC 34.8 RDW 12.6 Plt Count 180 Neut % (Auto) 61.0 Lymph % (Auto) 27.9 Rusk % (Auto) 9.2 Eos % (Auto) 1.6 L Baso % (Auto) 0.3 Neut # (Auto) 4800 Lymph # (Auto) 2200 Rusk # (Auto) 700 Eos # (Auto) 100 Baso # (Auto) 0 PT INR APTT Sodium 126 L Potassium 3.7 Chloride 92 L Carbon Dioxide 27 BUN 11 Creatinine 0.61 L Estimated GFR > 60 BUN/Creatinine Ratio 18.0 Glucose 98 Calcium 8.4 Magnesium Total Bilirubin AST ALT Alkaline Phosphatase Total Creatine Kinase CK-MB (CK-2) CK-MB (CK-2) Rel Index Troponin I Total Protein Albumin Globulin Albumin/Globulin Ratio Triglycerides 89 Cholesterol 147 LDL Cholesterol, Calc 80 HDL Cholesterol 49 Lipase Assessment & Plan Assessment & Plan narrative: 1. 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 Hyponatremia -suspect secondary to hypovolemia -will hold hctz -empirically given IV fluids -recheck sodium in AM -if not improved will need urine studies for further workup, to consider siadh, etc 3. Hypertension -hold anti-hypertensives for now I have discussed plan and obtained history from the patient. I have discussed plan of care with ED physician and bedside nurse. I have reviewed labs, imaging. CODE: Full ProxY: Shirley Martinez, spouse Quality VTE Deep Vein Thrombosis/Pulmonary Embolism Present on Admission: No [facility] - Meds 'Current medications' to include all prescriptions, [id number] products, herbals, cannabis/cannabidiol products, and vitamin/mineral/dietary (nutritional) supplements. I have utilized all available resources to obtain, update, or review the patient?s current medications. [If Yes, STOP here]: Yes
[2023-02-24] MEDS: ATORVASTATIN 20 MG TABLET 40 MG PO (08:28)
[2023-02-24] MEDS: CLOPIDOGREL 75 MG TABLET PO (08:28)
[2023-02-24] MEDS: ASPIRIN EC 81 MG TABLET PO (08:28)
[2023-02-24] MEDS: HEPARIN 5,000 UNIT/ML VIAL 5000 UNIT SUBCUT ×2 (08:28→21:30)
[2023-02-24] MEDS: SODIUM CHLORIDE 0.9% 1,000 ML 100 ML IV (09:32)
--- NOTE | 2023-02-24 12:32 | PT.IIE ---
Current Diagnoses Dizziness and giddiness (02/23/23) Surgical History (Last Reviewed 02/24/23 @ 06:17 by Ruddy Robles MD) History of prostatectomy History of tonsillectomy Medical History (Last Reviewed 02/24/23 @ 06:17 by Ruddy Robles MD) Alcohol dependence Depression GERD (gastroesophageal reflux disease) Hyperlipidemia Hypertension Physical Therapy Inpatient Evaluation/Re-Eval M1 PT/OT-IP Prior Functional Status Start: 02/24/23 12:05 Freq: NEEDED Status: Active Protocol: Document 02/24/23 12:05 MB (Rec: 02/24/23 12:31 MB [id number]) Medical Review Prior Functional Status Medical History Reviewed Yes Diet/Fluid Consistency Regular Communication I Mobility and Gait I, pt denies falls, though reports imbalance and history of working on balance at [facility] Activities of Daily Living and IADL's I Social History Household Members children Living Arrangements House Number of Floors (Floors) One Floor Number of Stairs To Enter/Railing? 1 step down into house and no railing Home Environment Standard Height Toilet Employment Status Retired Additional Social History Comment Pt reports he lives with his adult son who has developmental challenges. Pt's lives nearby. Pt states that he drinks about 4 glasses of hard liquor a night. He also takes sinus/allergy medicine regularly at night. M2 PT-IP Current Condition Start: 02/24/23 12:05 Freq: NEEDED Status: Active Protocol: Document 02/24/23 12:05 MB (Rec: 02/24/23 12:31 [id number]) Physical Therapy Current Condition Current Condition Evaluation Date 02/24/23 Treatment Diagnosis Imbalance, nausea and new light-headedness Onset Date Recently, unclear exact onset M3 PT-IP Subjective Start: 02/24/23 12:05 Freq: NEEDED Status: Active Protocol: Document 02/24/23 12:05 MB (Rec: 02/24/23 12:31 MB [id number]) Subjective Physical Therapy Visit Type Type Initial Evaluation Visit Start Time 11:45 Visit Stop Time 12:05 Total Visit Minutes 20 Number of CLAY HOISTER Visits 0 Physical Therapy Visit Comments Patient Comments Pt denies vertigo/spinning sensation, headaches, falls, vision changes. He reports sinus trouble such that he takes sinus and allergy medication regularly at night. His left eye is often closed over in the morning and mead. This is noticable to PT on assessment. He reports increased light-headedness/ dizziness that is not spinning with left SB with cervical range screening and he reports posterior neck tension. Patient Goals To decrease symptoms Therapy Pain Assessment Pain When Pain Assessed At Rest Pain Present Pain Present Denied Pain M4 PT-IP Mobility and Gait Start: 02/24/23 12:05 Freq: NEEDED Status: Active Protocol: Document 02/24/23 12:05 MB (Rec: 02/24/23 12:31 MB [id number]) PT-Bed Mobility Assessment Supine to Sit Supine to Sit Independent Sit to Supine Sit to Supine Independent Scooting Scooting to Edge of Bed Independent PT-Transfer Assessment Sit to and From Stand Sit to and from Stand Standby Assistance,1 Person Assistance,Use of Upper Extremities Equipment Transfer Assistive Device Gait Belt Gait Assessment Gait Gait Assistance Required: Contact Guard Assist,1 Person Assist Distance (Feet) 10 Able to Maintain Weight Bearing Status Yes During Gait Assistive Devices Assistive Device Gait Belt Orthotic/Prosthetic Devices or Brace: No Gait Deviations General Gait Pattern Decreased Stride Length Factors Limiting Gait Function Factors Limiting Gait Function Poor Balance Comments Gait Comments PT offers for pt to gait train in hallway with PT so that PT can further assess dynamic balance with gait and a step and pt denies. He has evidence for imbalance with short gait in the room and requires CGA. Gait distance is 5'x1, 10'x2 PT-Balance Assessment Sitting Balance and Reactions Static Sitting Balance Ability Good Dynamic Sitting Balance Ability Good Standing Balance and Reactions Static Standing Balance Ability Fair Dynamic Standing Balance Ability Fair Device Used Gait belt only Balance Tests Romberg Superv EO, CGA EC and pt self- limits time to 10 sec Comments Other Balance Tests/Deviations/Treatment SLS left 3 sec and right 10 : sec and pt requires CGA M5 PT-IP Objective Assessments Start: 02/24/23 12:05 Freq: NEEDED Status: Active Protocol: Document 02/24/23 12:05 MB (Rec: 02/24/23 12:31 MB [id number]) Orientation Orientation/Cognition Level of Alertness Alert Orientation Name,Age,Birthday,Month,Date, Year,Situation Language Function Ability No Deficits Noted Safety Awareness Understands Safety Issues Memory Description No Deficits Noted Comments Pt has insight to his consumption of alcohol and related presentation of hyponatremia and expresses desire to decrease drinking but he does have ongoing history of drinking at night Gross Range of Motion Lower Extremity ROM Assessment Within Functional Limits Strength Lower Extremity Strength Assessment Within Functional Limits Coordination Assessment Assessment Finger to Nose Test Minimal Impairment Pronation/Supination Test Normal Performance Heel on Phillips Test Normal Performance Coordination Comments Mild impairment [id number] on non-dominant left hand Sensation Assessment Sensation Gross Sensation WNL Light Touch Intact Muscle Tone Muscle Tone WNL Yes Other Assessments Other Other Assessments Cervical screen functional with decreased AROM all directions and reports of increased dizziness and posterior neck discomfort with left SB: suspect cervicogenic component to symptoms given this. Orthostatic assessment is negative with BP and HR in right brachial area: supine 163/76, 58; standing 175/78, 60; standing 1' 180/83, 59. Oculomotor screen negative as far as no spontaneous nystagmus, eye ROM, visual tracking. No BPPV testing d/t pt does not report spinning dizziness or positional dizziness in the bed. M6 PT-IP Treatment Start: 02/24/23 12:05 Freq: NEEDED Status: Active Protocol: Document 02/24/23 12:05 MB (Rec: 02/24/23 12:31 MB [id number]) Physical Therapy Treatment Other Treatments Other Treatment Performed Education provided to pt about benefits of seeking help about alcohol consumption given symptoms, hyponatremia, history of TIA. Ed in relationship of dehydration and alcohol consumption ( diuretic) as well as use of sinus and decongestants/ allergy medications and their drying out effect as far as they relate to physical therapy vestibular screen and his presentation. Recommended return to [facility] for balance PT at d/c as pt reports he really likes Erin there and feels well-cared for there. M7 PT-IP Assessment and Plan Start: 02/24/23 12:05 Freq: NEEDED Status: Active Protocol: Document 02/24/23 12:05 MB (Rec: 02/24/23 12:31 MB [id number]) PT Summary Assessment and Plan Potential Rehabilitation Potential Fair Status of Condition at Evaluation Evolving Summary Impairments Balance,Gait Progress Towards Goals Progressing Toward Goals Assessment Summary Vestibular PT assessment today . Pt is an 82 y/o male presenting with history of imbalance and newer symptoms of nausea and dizziness. Orthostatic assessment is negative today as well as oculomotor screen. BPPV testing deferred d/t no c/o spinning dizziness or positional dizziness when in bed. PT reviewed brain MRI report and noted meningioma right middle cranial fossa, greater wing right sphenoid and possible right orbital involvement. PT will defer to physician impression about these but functionally, it is possible that any fascial pressure changes in the sphenoid area could increase symptoms of eye watering (pt's left eye in this case) and imbalance. Alcohol consumption at night as well as sinus/ decongestant use may also contribute to his light- headedness symptoms and electrolyte changes. Medical history states that he is on HCTZ as well. A change in lifestyle in these two areas may certainly improve his symptoms. PT also feels that pt has a cervicogenic component to his symptoms given symptoms increase with left cervical SB and he has neck discomfort as well. Outpatient physical therapy including cervical manual work , exercise and balance training may be beneficial for this component to his symptoms. Pt is at increased risk for stroke given history of alcoholism, TIA and HTN. Goals Transfer Goal Independent Gait Goal Independent Gait Distance 100 Other Goals Pt will ascend and descend 1 step with no more than superv to allow safe home entry. Days to Meet Goals 2 Frequency of Treatment Frequency Of Treatment Once a Day Treatment Plan Physical Therapy Treatment Plan Transfer Training,Gait Training,Therapeutic Exercise, Balance Retraining Recommendations To Nursing Amount of Assist Needed Standby Assistance,1 Person Assist Discharge Recommendations PT Discharge Recommendations Home with Assistance, Outpatient PT Transportation Needs at Discharge Private Vehicle
--- NOTE | 2023-02-24 13:39 | OT.IP.EVAL ---
Current Diagnoses Dizziness and giddiness (02/23/23) Past Medical History (Last Reviewed 02/24/23 @ 06:17 by Ruddy Robles MD) Alcohol dependence Depression GERD (gastroesophageal reflux disease) Hyperlipidemia Hypertension Surgical History (Last Reviewed 02/24/23 @ 06:17 by Ruddy Robles MD) History of prostatectomy History of tonsillectomy Occupational Therapy Inpatient Evaluation/Re-Eval M1 PT/OT-IP Prior Functional Status Start: 02/24/23 12:05 Freq: NEEDED Status: Complete Protocol: Document 02/24/23 12:05 MB (Rec: 02/24/23 12:31 MB [id number]) Medical Review Prior Functional Status Medical History Reviewed Yes Diet/Fluid Consistency Regular Communication I Mobility and Gait I, pt denies falls, though reports imbalance and history of working on balance at [facility] in [place] Activities of Daily Living and IADL's I Social History Household Members children Living Arrangements House Number of Floors (Floors) One Floor Number of Stairs To Enter/Railing? 1 step down into house and no railing Home Environment Standard Height Toilet Employment Status Retired Additional Social History Comment Pt reports he lives with his adult son who has developmental challenges. Pt's lives nearby. Pt states that he drinks about 4 glasses of hard liquor a night. He also takes sinus/allergy medicine regularly at night. M1 PT/OT-IP Prior Functional Status Start: 02/24/23 13:15 Freq: NEEDED Status: Active Protocol: Document 02/24/23 11:08 [facility] (Rec: 02/24/23 13:39 [facility] [id number]) Medical Review Prior Functional Status Medical History Reviewed Yes Diet/Fluid Consistency Regular Communication I Mobility and Gait I, pt denies falls, though reports imbalance and history of working on balance at [facility] in [place] Activities of Daily Living and IADL's I Social History Household Members children Living Arrangements House Number of Floors (Floors) One Floor Number of Stairs To Enter/Railing? 1 step down into house with left rail Home Environment Standard Height Toilet Employment Status Retired Additional Social History Comment Pt reports he lives with his adult son who has developmental challenges. Pt's lives nearby. Pt states that he drinks about 4 glasses of hard liquor a night. He also takes sinus/allergy medicine regularly at night. M3 OT- IP Subjective and Pain Start: 02/24/23 13:15 Freq: Status: Active Protocol: Document 02/24/23 11:08 [facility] (Rec: 02/24/23 13:39 [facility] [id number]) OT- Subjective Occupational Therapy Visit Type Type Initial Evaluation Visit Start Time 11:08 Visit Stop Time 11:50 Total Visit Minutes 42 Occupational Therapy Visit Comments Patient Comments Pt agreed to get up. Patient/Caregiver Goals To go home OT Pain Assessment Pain When Pain Assessed At Rest Pain Present Pain Present Denied Pain M4 OT- IP ADL's Start: 02/24/23 13:15 Freq: Status: Active Protocol: Document 02/24/23 11:08 [facility] (Rec: 02/24/23 13:39 [facility] [id number]) OT [id number]-[id number] General Evaluation Self-Feeding Ability Independent OT ADL-Grooming General Evaluation Grooming Ability Independent OT ADL-Oral Care General Eval Oral Care Ability Independent OT ADL-Dressing General Eval Lower Body Dressing Ability Standby Assistance Comments OT Dressing Comments Pt able to sit and roxie/doff his socks while seated. OT ADL-Toileting Comments OT Toileting Comments Pt states has been able use the toilet but states nursing aid has been SBA. OT ADL-Bathing Comments OT Bathing Comments Not performed, pt realizing best to use a shower chair for showering at this time. M5 OT- IP IADL's Start: 02/24/23 13:15 Freq: Status: Active Protocol: Document 02/24/23 11:08 [facility] (Rec: 02/24/23 13:39 [facility] [id number]) OT-Instrumental Activities of Daily Living Home Safety Awareness Awareness of Need for Assistance at Home Good Awareness Ability to Problem Solve Emergency Able to Problem Solve Situations Home Safety Comments Pt's son lives with him and his lives nearby who are able to assist pt as needed. Medication Management Medication Management Comments Pt would benefit from writing things down as pt states has decreased STM. Driving Driving Comments Pt states can get family/ friends to drive him. M6 OT- IP Functional Cognition Start: 02/24/23 13:15 Freq: Status: Active Protocol: Document 02/24/23 11:08 [facility] (Rec: 02/24/23 13:39 [facility] [id number]) Cognitive Factors Limiting Selfcare Function Cognitive Ability Level of Alertness Alert Patient Orientation Name,Age,Birthday,Month,Date, Year,Day of Week,Place, Situation Attention Span Ability Capable of Focused Attention, Capable of Sustained Attention Ability to Follow Commands Able to Follow One Step Commands Memory Description Short Term Intact Problem Solving Ability No deficits Noted Cognitive Comments Cognitive Assessment Comments Pt needing reminders for directions for [place] [employer] [place] [employer] and scored 112 seconds which implies moderate impairments for visual attention, speed of processing , executive functioning, task switching, and mental flexibility. Pt states has difficulty with his short term memory and encouraged pt to write things down. OT- Vision and Hearing OT- Hearing Assessment OT- Hearing Assessment WFL OT- Vision Assessment Visual Acuity Glasses All The Time Visual Attentiveness WFL Occular Pursuits WFL Visual Convergence WFL Visual Hercules WFL Diplopia Absent M7 OT- IP Mobility and Balance Start: 02/24/23 13:15 Freq: Status: Active Protocol: Document 02/24/23 11:08 [facility] (Rec: 02/24/23 13:39 [facility] [id number]) OT- Bed Mobility Assessment Rolling Level of Assistance Standby Assistance Supine to Sit Supine to Sit Assist Standby Assistance OT-Transfer Assessment Sit to and From Stand Sit to and from Stand Standby Assistance Transfers Transfer Ability Standby Assistance Technique Transfer Destination Bed,Car Transfer Technique Stand Step Pivot Devices Transfer Assistive Devices Gait Belt Comments Mobility Comments Pt tend to get into bed getting his knee on the bed and twisting to tunt to sit. Educated pt bst to do log rolling as pt states has had back pain due to his chronic back issues. Pt able to get out of bed with SBA. SBA to walk in the the room. OT- Balance Assessment Sitting Balance and Reactions Static Sitting Balance Ability Normal Dynamic Sitting Balance Ability Good Standing Balance and Reactions Static Standing Balance Ability Good Dynamic Standing Balance Ability Fair M8 OT- IP Objective Assessments Start: 02/24/23 13:15 Freq: Status: Active Protocol: Document 02/24/23 11:08 [facility] (Rec: 02/24/23 13:39 [facility] [id number]) OT Gross Range of Motion Upper Extremity Range of Motion Assessment Within Functional Limits OT Strength Upper Extremity Strength Assessment Within Functional Limits Comments Strength Comments RUE 4+/5, LUE 5/5 pt has history of old RUE rotatory cuff injury per pt. OT- Coordination Assessment Upper Extremity Finger to Nose Test Within Functional Limits Finger Tapping Test Within Functional Limits Comments Coordination Comments Left 3rd digit PIP missing. OT Sensation Assessment Comments Summary Comments Increased time for proprioception for right elbow to distal and for LUE M9 OT- IP Assessment and Plan Start: 02/24/23 13:15 Freq: Status: Active Protocol: Document 02/24/23 11:08 [facility] (Rec: 02/24/23 13:39 [facility] [id number]) OT Summary Assessment and Plan Potential Rehabilitation Potential Good Analytic Complexity at Evaluation Low Summary OT Impairments Balance,Functional Cognition, Functional Mobility,Bathing Progress Towards Goals Slow Progress due to Medical Issues Assessment Summary Pt MOD complexity with hyponatremia and nausea. Pt main barriers are decreased dynamic standing balance, having difficulty with task switching and executive functioning- however pt states did not sleep well yesterday. Pt would benefit from assist at home and outpt PT for balance needs. Goals Dressing Goal Independent Toileting Goal Independent Bathing Goal Independent Toilet Transfer Goal Independent Shower Transfer Goal Independent Days to Meet Goals 2 Frequency of Treatment Frequency Of Treatment Once a Day Treatment Plan OT Treatment Plan ADL Training,Functional Mobility,Patient/Family Education,Discharge Planning Discharge Recommendations OT Discharge Recommendations Home with Assistance, Outpatient PT Transportation Needs at Discharge Private Vehicle
--- NOTE | 2023-02-24 15:14 | CM.DANOTE ---
DCP: Patient Izzy) is a 82yo M here following TIA incident. Payer: Medicare and [employer] PCP: Saray Davis MAP CLERK reviewed EMR. MAP CLERK entered room and introduced self and role. Patient appeared A/Ox4 and was sitting in chair watching TV. Patient lives at home in [place] with his adult son. Patient reports he drives at baseline and manages independently with his ADLs. Patient is eager to go home and reports his son, step-son, or neighbor will come and get him upon d/c. Patient reports d/c is pending on his sodium levels being normal. MAP CLERK inquired about if patient would be interested in resources regarding his alcohol intake. Patient told this author that he drinks about four glasses of liqueur per night, and never during the day. Patient and MAP CLERK had a lengthy conversation regarding his history of alcohol usage, how this event was another wake up call, how he saw his step son stop drinking alcohol and the inspiration that was for him, and his plans for attempting change. MAP CLERK utilized psychoeducation to increase client awareness of the recovery process. Patient appears to be in the contemplative stage of change, potentially bordering preparation.? Patient denied resources from this author, stating he wants to try things [his] own way first. Patient states he knows where to go in [place] for outpatient help, including asking his son and step son for help finding additional outpatient services for him. Patient identified his son and step son as supports for attempting change. Plan: home with family assistance, transport with son/step son/neighbor. Possibly today, potentially tomorrow. CM Team will continue to follow with needs. KAMRON Shukla Discharge Planning/Care Management CM Discharge Assessment Start: 02/24/23 15:12 Freq: Status: Active Protocol: Document 02/24/23 15:12 [facility] (Rec: 02/24/23 15:13 [id number]) Discharge Planning Assessment Assigned Visually Impaired Teacher KAMRON Shukla DPOA/Assigned Designee Name Shirley Martinez (spouse) Contact Information [phone] Advance Directives? Yes Advance Directives on File No History Provided By Patient,Medical Record Prior Living Arrangements House Household Members children Type of transporation used prior to Drives own vehicle admit Independent with ADL's Yes Is patient alert and oriented? Yes Barriers to Discharge No Discharge Plan Home Transportation Arrangement either son, step-son, or neighbor will come pick him up upon d/c Whiteboard Updated in Patient Room with Yes name and ext. # of Visually Impaired Teacher Review Status In Process Next Review Type Continued Stay Review
[2023-02-24 15:41] LABS: Sodium 126 mmol/L (137-145)
[2023-02-24 15:57] LABS: Creatinine Urine Random 93.5 mg/dL; Sodium Urine Random 92 mmol/L (30-90)
--- NOTE | 2023-02-24 16:17 | PM.PN.1 ---
Subjective Subjective Interval history: He still feels lightheaded but somewhat improved. Orthostatics negative. MRI with meningioma with no acute CVA. ECHO with no acute process. Exam Vital Signs (past 8 hours): - 02/24/23 08:53 02/24/23 12:00 02/24/23 14:00 Temperature 98.0 F Pulse Rate 60 Pulse Rate [Orthostatic Lying] 54 L Pulse Rate [Orthostatic Sitting] 58 L Pulse Rate [Orthostatic Standing] 64 Respiratory Rate 16 Blood Pressure 184/74 H Blood Pressure [Orthostatic Lying] 157/71 H Blood Pressure [Orthostatic Sitting] 164/88 H Blood Pressure [Orthostatic Standing] 168/86 H Pulse Oximetry 98 98 Oxygen Delivery Method Room Air Oxygen Flow Rate 0 Oxygen Delivery Method Room Air Oxygen Flow Rate 0 Narrative Exam Narrative: GEN: no acute distress HEENT: moist mucous membranes CV: bradycardic, no murmurs PULM: clear bilaterally ABD: soft, nontender EXT: warm and well perfused NEURO: awake, alert, oriented, no focal deficits Objective Labs 02/24/23 05:01 02/24/23 15:20 Labs: Laboratory Results - last 24 hr 02/24/23 02/24/23 02/24/23 05:01 05:01 13:25 WBC 7.9 RBC 4.27 L Hgb 13.7 Hct 39.2 L MCV 91.8 MCH 32.0 MCHC 34.8 RDW 12.6 Plt Count 180 Neut % (Auto) 61.0 Lymph % (Auto) 27.9 Phelps % (Auto) 9.2 Eos % (Auto) 1.6 L Baso % (Auto) 0.3 Neut # (Auto) 4800 Lymph # (Auto) 2200 Phelps # (Auto) 700 Eos # (Auto) 100 Baso # (Auto) 0 Sodium 126 L Potassium 3.7 Chloride 92 L Carbon Dioxide 27 BUN 11 Creatinine 0.61 L Estimated GFR > 60 BUN/Creatinine Ratio 18.0 Glucose 98 Calcium 8.4 Triglycerides 89 Cholesterol 147 LDL Cholesterol, Calc 80 HDL Cholesterol 49 Ur Random Sodium 92 H Urine Creatinine 93.5 02/24/23 15:20 WBC RBC Hgb Hct MCV MCH MCHC RDW Plt Count Neut % (Auto) Lymph % (Auto) Phelps % (Auto) Eos % (Auto) Baso % (Auto) Neut # (Auto) Lymph # (Auto) Phelps # (Auto) Eos # (Auto) Baso # (Auto) Sodium 126 L Potassium Chloride Carbon Dioxide BUN Creatinine Estimated GFR BUN/Creatinine Ratio Glucose Calcium Triglycerides Cholesterol LDL Cholesterol, Calc HDL Cholesterol Ur Random Sodium Urine Creatinine COUNTS INCLUDE 234 BEDS AT THE [facility] Medical History Alcohol dependence Depression GERD (gastroesophageal reflux disease) Hyperlipidemia Hypertension Surgical History History of prostatectomy History of tonsillectomy Family History Father CAD (coronary artery disease) Mother No problems noted. Social History marital status: unknown household members: children lives independently: Yes occupational status: previously employed Smoking Status: Former smoker alcohol intake: current substance use type: marijuana Assessment & Plan Assessment & Plan narrative: 1. Lightheadedness -suspect etiology is multifactorial from EtOH, meningioma, and hypontremia -MRI negative for stroke -echo reassuring -orthostatics negative -worked with PT 2. Hyponatremia -not improved with IVF -urine na elevated at 92 -suspect etiology is siadh, possibly secondary to meningioma vs other -fluid restrict and ordered salt tabs -hold hctz 3. Meningioma -follow up with PCP and nonurgent MRI of orbits 4. EtOH abuse -not withdrawing -ordered ciwa scale -mvi, thiamine, folate 5. Hypertension -restart anti-hypertensives on 02/25 Quality VTE Deep Vein Thrombosis/Pulmonary Embolism Present on Admission: No
[2023-02-24] MEDS: SODIUM CHLORIDE 1,000 MG TABLET 1000 MG PO ×2 (16:37→21:15)
[2023-02-24] MEDS: ONDANSETRON 4 MG/2 ML INJ IV (21:34)
[2023-02-25 02:00] VITALS: O2SAT 96
[2023-02-25 04:30] VITALS: BP 145/69; PULSE 60; RESP 18; TEMP 36; O2SAT 97
[2023-02-25 06:19] LABS: Mean Corpuscular Hemoglobin 32.5 PG (26-34); Mean Corpuscular Volume 92.8 fL (80-100); Platelet Count 175 X10^3/uL (150-400); Red Blood Cell Count 3.99 X10^6/uL (4.5-5.9); Red Cell Distribution Width 12.8 % (11.6-14.8); White Blood Cell Count 6.7 X10^3/uL (4.5-11.0)
[2023-02-25 07:06] LABS: BUN Creatinine Ratio 16.7 (6-22); Blood Urea Nitrogen 10 mg/dL (9-20); Calcium 8.5 mg/dL (8.4-10.2); Carbon Dioxide 28 mmol/L (22-32); Chloride 96 mmol/L (98-107); Estimated Glomerular Filt Rate > 60 mL/min (>60); Glucose 99 mg/dL (80-110); HEMOLYSIS < 15 (0-50); Potassium 3.9 mmol/L (3.4-5.1); Sodium 127 mmol/L (137-145)
[2023-02-25 08:00] VITALS: BP 152/85; PULSE 68; RESP 18; TEMP 36.1; O2SAT 100; O2SAT 97
[2023-02-25] MEDS: HEPARIN 5,000 UNIT/ML VIAL 5000 UNIT SUBCUT (08:36)
[2023-02-25] MEDS: ASPIRIN EC 81 MG TABLET PO (08:36)
[2023-02-25] MEDS: FOLIC ACID 1 MG TABLET PO (08:37)
[2023-02-25] MEDS: THIAMINE 100 MG TABLET PO (08:37)
[2023-02-25] MEDS: MULTIVITAMIN 1 TABLET 1 TAB PO (08:37)
[2023-02-25] MEDS: ATORVASTATIN 20 MG TABLET 40 MG PO (08:37)
[2023-02-25] MEDS: CLOPIDOGREL 75 MG TABLET PO (08:37)
[2023-02-25] MEDS: SODIUM CHLORIDE 1,000 MG TABLET 1000 MG PO (08:37)
--- NOTE | 2023-02-25 10:23 | CM.DPNOTE ---
DC Note Plan: Patient discharged home today w/spouse and recommendation for close outpatient follow up. Therapies have cleared patient for this plan No needs from this CM team JW
--- NOTE | 2023-02-25 11:54 | OT.IPNOTE ---
Pt going home today and states will not drive at this time.
--- NOTE | 2023-02-25 12:20 | PT.IPTN ---
Current Diagnoses Dizziness and giddiness (02/23/23) Physical Therapy Treatment Note M2 PT-IP Current Condition Start: 02/24/23 12:05 Freq: NEEDED Status: Active Protocol: Document 02/24/23 12:05 MB (Rec: 02/24/23 12:31 MB [id number]) Physical Therapy Current Condition Current Condition Evaluation Date 02/24/23 Treatment Diagnosis Imbalance, nausea and new light-headedness Onset Date Recently, unclear exact onset M3 PT-IP Subjective Start: 02/24/23 12:05 Freq: NEEDED Status: Active Protocol: Document 02/25/23 12:09 ES (Rec: 02/25/23 12:20 ES [id number]) Subjective Physical Therapy Visit Type Type Treatment Note Visit Start Time 10:58 Visit Stop Time 11:11 Total Visit Minutes 13 Physical Therapy Visit Comments Patient Comments Patient reported feeling tired and needing more sleep. He stated he feels better today otherwise and not having dizziness or lightheadedness. Feels ready to go home. He stated he has 2 sons who will be around to help him out, and that he can borrow a walker from his neighbor if he needs it. Is thinking about getting a cane. Wants to go back to OP PT at [facility]. M4 PT-IP Mobility and Gait Start: 02/24/23 12:05 Freq: NEEDED Status: Active Protocol: Document 02/25/23 12:09 ES (Rec: 02/25/23 12:20 ES [id number]) PT-Transfer Assessment Sit to and From Stand Sit to and from Stand Independent,Use of Upper Extremities Equipment Transfer Assistive Device Gait Belt Comments Mobility Comments Patient denied dizziness, lightheadedness. No unsteadiness noted. Gait Assessment Gait Gait Assistance Required: Independent Distance (Feet) 200 Assistive Devices Assistive Device Gait Belt,Front Wheeled Walker Gait Deviations General Gait Pattern Within Normal Limits Comments Gait Comments Recommended he use walker to reduce his fall risk due to poor tandem and SL balance, and patient agreeable to this. Able to manage FWW safely and without unsteadiness. Stair Climbing Assessment Evaluation Level of Assist On Stairs Independent Devices Stair Climbing Assistive Devices Front Wheel Walker Technique/Endurance Stair Climbing Direction Ascend and Descend Stair Climbing Technique Step to Step Number of Steps Climbed 1 Stair Climbing Set # Repetitions (reps) 2 Comments Stair Climbing Comments Performed step up/down on platform step to simulate single step into house. Patient able to manage FWW on step, though also has rail to use as needed. PT-Balance Assessment Sitting Balance and Reactions Static Sitting Balance Ability Good Dynamic Sitting Balance Ability Good Standing Balance and Reactions Static Standing Balance Ability Good Dynamic Standing Balance Ability Good Device Used FWW Balance Tests Single Limb Standing 0 seconds, LOB with attempt Tandem Standing x10 seconds, unsteady M5 PT-IP Objective Assessments Start: 02/24/23 12:05 Freq: NEEDED Status: Active Protocol: Document 02/24/23 12:05 MB (Rec: 02/24/23 12:31 MB [id number]) Orientation Orientation/Cognition Level of Alertness Alert Orientation Name,Age,Birthday,Month,Date, Year,Situation Language Function Ability No Deficits Noted Safety Awareness Understands Safety Issues Memory Description No Deficits Noted Comments Pt has insight to his consumption of alcohol and related presentation of hyponatremia and expresses desire to decrease drinking but he does have ongoing history of drinking at night Gross Range of Motion Lower Extremity ROM Assessment Within Functional Limits Strength Lower Extremity Strength Assessment Within Functional Limits Coordination Assessment Assessment Finger to Nose Test Minimal Impairment Pronation/Supination Test Normal Performance Heel on Phillips Test Normal Performance Coordination Comments Mild impairment [id number] on non-dominant left hand Sensation Assessment Sensation Gross Sensation WNL Light Touch Intact Muscle Tone Muscle Tone WNL Yes Other Assessments Other Other Assessments Cervical screen functional with decreased AROM all directions and reports of increased dizziness and posterior neck discomfort with left SB: suspect cervicogenic component to symptoms given this. Orthostatic assessment is negative with BP and HR in right brachial area: supine 163/76, 58; standing 175/78, 60; standing 1' 180/83, 59. Oculomotor screen negative as far as no spontaneous nystagmus, eye ROM, visual tracking. No BPPV testing d/t pt does not report spinning dizziness or positional dizziness in the bed. M6 PT-IP Treatment Start: 02/24/23 12:05 Freq: NEEDED Status: Active Protocol: Document 02/25/23 12:09 ES (Rec: 02/25/23 12:20 ES [id number]) Physical Therapy Treatment Education Education Provided Safety Other Treatments Other Treatment Performed Educated on benefit of using AD to reduce fall risk at home and in the community. M7 PT-IP Assessment and Plan Start: 02/24/23 12:05 Freq: NEEDED Status: Active Protocol: Document 02/25/23 12:09 ES (Rec: 02/25/23 12:20 ES [id number]) PT Summary Assessment and Plan Summary Progress Towards Goals Progressing Toward Goals Assessment Summary Patient was able to perform all mobility tasks indep with use of FWW. He remains unsteady with tandem and SLS, and is at increased risk for falls. He would benefit from regular use of AD at home and in the community to reduce his risk of falls, and patient was open to this. Recommend he return to OP PT when cleared by PCP to further address balance and safety. Frequency of Treatment Frequency Of Treatment Once a Day Treatment Plan Physical Therapy Treatment Plan Transfer Training,Gait Training,Therapeutic Exercise, Balance Retraining Recommendations To Nursing Amount of Assist Needed Standby Assistance Discharge Recommendations PT Discharge Recommendations Home with Assistance, Outpatient PT Transportation Needs at Discharge Private Vehicle
--- NOTE | 2023-02-25 16:53 | P.DS_ITS ---
History of Present Illness History of Present Illness Chief complaint: dizzy T-5 Narrative: Mr. Martinez is an 82M with PMH GERD, HTN, HL, TIA who presents to the hospital with lightheadedness. He notes this started about five days ago. He has chronic issues with poor balance, but the dizziness is not usual for him. No room spinning, no headache. He sometimes feels some nausea with these symptoms. No hearing or visual changes. No lateralizing weakness, no facial droop, no difficulty with swallowing or speech. He has felt that he was not drinking enough liquids, but he has increased that over the last few days by drinking lots of water and his symptoms are not better. He has checked his blood pressure at home and it has been in the 120s which is low for him. He has no vomiting or diarrhea. He is taking HCTZ. In the ED, workup was done, vitals notable for afebrile, heart rate 50s, blood pressure 180s/80s, Sats 97% on room air. Labs reviewed and notable for WBC 7.2, hgb 14.4 plts 203. Na 126, creatinine 0.62. Trop negative. Urine negative. Chest xray reviewed by me and notable for slight atelectasis. CT head with no acute process. 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 He was ordered for aspirin and admitted for further treatment. Discharge Providers Provider Date of admission: 02/23/23 18:12 Discharge Date: 02/25/23 Primary care physician: Saray Davis PA-C Consults: 02/23/23 19:23 Consult to Microbiology Manager Routine Comment: 02/23/23 20:24 Consult to Occupational Therapy Evaluate & Treat Comment: Physician Instructions: Evaluate and treat Consult to Physical Therapy Evaluate & Treat Comment: Physician Instructions: Evaluate and Treat 02/25/23 10:23 Consult to Physical Therapy Evaluate & Treat Comment: outpatient referral for lightheadedness Physician Instructions: Evaluate and Treat Discharge provider: Ruddy Robles MD Summary Hospital Course Discharge Diagnosis: 1. Lightheadedness 2. Hyponatremia, probable SIADH 3. Meningioma 4. EtOH dependence 5. Hypertension 6. Multivessel intracranial stenosis Hospital Course: Mr. Martinez was admitted for lightheadedness and imbalance. His workup was negative for storke. He had multivessel intracranial artery disease with sten osis. So he was placed on dual antiplatelet therapy. He had other reasons for his lightheaded that were likely contributing. He is a daily drinker, he did not have withdrawals here. He also was noted to have hyponatremia. Initially this was thought secondary to dehydration from EtOH but Iv fluids did not improve his sodium. Urine studies showed elevate urinary sodium possibly SIADH. He was placed on fluid restriction and given salt tablets. He was encouraged to stay on 2L fluid restriction and add more salt to diet. His meningioma may be contributing to SIADH and lightheaded. He was encouraged to follow up with PCP for further eval. His HCTZ was stopped on discharge due to hyponatremia. Exam Vital Signs (past 8 hours): Oxygen Delivery Method Room Air Oxygen Flow Rate 0 Narrative Exam Narrative: GEN: no acute distress HEENT: moist mucous membranes CV: bradycardic, no murmurs PULM: clear bilaterally ABD: soft, nontender EXT: warm and well perfused NEURO: awake, alert, oriented, no focal deficits Objective Labs 02/25/23 05:42 02/25/23 05:42 Labs: Laboratory Results - last 24 hr 02/25/23 02/25/23 05:42 05:42 WBC 6.7 RBC 3.99 L Hgb 13.0 L Hct 37.0 L MCV 92.8 MCH 32.5 MCHC 35.0 RDW 12.8 Plt Count 175 Sodium 127 L Potassium 3.9 Chloride 96 L Carbon Dioxide 28 BUN 10 Creatinine 0.60 L Estimated GFR > 60 BUN/Creatinine Ratio 16.7 Glucose 99 Calcium 8.5 [facility] Medical History Alcohol dependence Depression GERD (gastroesophageal reflux disease) Hyperlipidemia Hypertension Surgical History History of prostatectomy History of tonsillectomy Family History Father CAD (coronary artery disease) Mother No problems noted. Social History marital status: unknown household members: children lives independently: Yes occupational status: previously employed Smoking Status: Former smoker alcohol intake: current substance use type: marijuana Discharge Plan Discharge Plan Patient Disposition: Home Health Service Provider Discharge Comment: Mr. Martinez came in to the hospital with lightheadedness. He improved in the hospital. His MRI was negative for stroke. He did have multiple blood vessels in his brain narrowed due to plaque, so he was started on clopidgrel (plavix) in addition to aspirin. He had a meningioma behind his right eye, which is possibly causing some of his lightheadednes, he should follow with his pcp about it. He also has low salt levels (probably due to a condition called SIADH). He is given salt tablets and can take these for a week or just add more salt to his food. His hydrochlorothiazide was stopped as it can cause low salt levels. He should be careful not to drink lots of water. Discharge orders & Medications Prescriptions: New meclizine 12.5 mg Tablet 25 mg PO Q6HR PRN (Reason: Vertigo) Qty: 12 0RF clopidogrel 75 mg Tablet 75 mg PO DAILY Qty: 30 0RF sodium chloride 1,000 mg Tablet,Soluble 1,000 mg PO TID Qty: 20 0RF Continued atorvastatin 40 mg tablet 40 mg PO DAILY citalopram 20 mg tablet 10 mg PO DAILY omeprazole 20 mg capsule,delayed release(DR/EC) 20 mg PO DAILY naproxen sodium [Aleve] 220 mg Tablet 220 mg PO PRN PRN (Reason: Back Pain) Patient Comments: patient states usually one dose works aspirin 81 mg Tablet,Delayed Release (Dr/Ec) 81 mg PO DAILY Qty: 30 0RF valsartan 320 mg tablet 320 mg PO DAILY Patient Comments: TAKE ONE TABLET BY MOUTH ONE TIME DAILY gabapentin 100 mg Capsule 200 mg PO TID metoprolol succinate 25 mg tablet extended release 24 hr 25 mg PO DAILY Patient Comments: TAKE ONE TABLET BY MOUTH ONE TIME DAILY acetaminophen [Tylenol] 325 mg Capsule 325 mg PO QID PRN (Reason: Pain (Scale Score 1-3)) Discontinued hydrochlorothiazide 50 mg tablet 25 mg PO DAILY Follow up/Referrals: Saray Davis PA-C [Primary Care Provider] - 3-5 Days ([facility] will call you with a follow up appointment-you need to be seen with in 3-5 days of discharge. DX:lightheaded, meningioma, hyponatremia (possible siadh), follow up hospitalization) Diet/Activity/Treatments Diet comment: 2L fluid restriction Visit Report/Discharge Packet Instructions: DI for Hyponatremia Stand Alone Forms: Patient Portal/API, Stroke Signs & Symptoms Discharge Data Primary Care Provider: Saray Davis Discharges patient from system. Discharge Date/Time: 02/25/23 12:20 Quality VTE Deep Vein Thrombosis/Pulmonary Embolism Present on Admission: No
== END 2023-02-25 12:20 | disposition home or self-care (01) | DRG 55 ==
LOC: ED 15:40 → AC 18:18
PROVIDERS: Internal Medicine; Admitting Provider Family Medicine; Emergency Provider Emergency Medicine; PCP Student in an Organized Health Care Education/Training Program; Referring Provider Emergency Medicine; Visit Provider Family Medicine
DX: D32.9 Benign neoplasm of meninges, unspecified (principal); E22.2 Syndrome of inappropriate secretion of antidiuretic hormone; R42 Dizziness and giddiness; I10 Essential (primary) hypertension; F10.10 Alcohol abuse, uncomplicated; I66.3 Occlusion and stenosis of cerebellar arteries; E78.5 Hyperlipidemia, unspecified; K21.9 Gastro-esophageal reflux disease without esophagitis; F32.A Depression, unspecified; Z20.822 Contact with and (suspected) exposure to COVID-19; Z87.891 Personal history of nicotine dependence
CPT/HCPCS: 36415; 70496; 70498; 70551; 71045; 80048; 80053; 80061; 81003; 82550; 82570; 83690; 83735; 84295; 84300; 84484; 85025; 85027; 85610; 85730; 93005; 93010; 93306; 97116; 97163; 97166; 99284; J1644; J2405; Q9967

== ENCOUNTER → 2023-08-31 15:08 | Outpatient (CLI) | payer MEDICARE, OTHER, SELFPAY ==
[2023-02-23 18:23] VITALS: BMI 28.1
--- NOTE | 2023-08-31 | DI.MRI.S_ITS ---
PROCEDURE: MR HEAD/BRAIN WO/W CON INDICATIONS: INTERCRAINIAL ATHEROSCLEROSIS TECHNIQUE: Noncontrast axial T1 spin echo, axial T2 fast spin echo, sagittal and axial FLAIR, coronal T2 fast spin echo, axial gradient echo, axial diffusion and ADC through the brain. After the administration of contrast, axial and coronal and sagittal T1 spin echo with fat saturation through the brain. COMPARISON: [facility], MR, MR HEAD/BRAIN WO CON, 02/24/2023, 10:10. FINDINGS: Image quality: Excellent. CSF spaces: Basal cisterns are patent. No extra-axial fluid collections. Ventricles are normal in size and shape. Brain: No midline shift. No intracranial bleeds or masses. No abnormal intracranial enhancement. There is cerebral volume loss for age. There is periventricular white matter chronic small vessel ischemic change. The brainstem appears normal. There is a 4 mm focus of restricted diffusion within the right putamen with associated edema. Most consistent with acute infarct. No chronic ischemic insults. Normal intravascular flow voids are present. Skull and face: Calvarial marrow is normal in signal. Bilateral lens replacements. Otherwise, the orbits are unremarkable. Sinuses: Mild diffuse paranasal sinus mucosal thickening. Small left and trace right mastoid fluid. IMPRESSION: Tiny 4 mm focus of acute infarct within the right putamen. Age-related global volume loss and chronic microvascular ischemic changes. Dictated by: Jose F Boyer M.D. on 08/31/2023 at 16:22 Approved by: Jose F Boyer M.D. on 08/31/2023 at 16:29
== END ==
PROVIDERS: PCP Student in an Organized Health Care Education/Training Program; Referring Provider Nurse Practitioner Family; Visit Provider Nurse Practitioner Family
DX: I67.2 Cerebral atherosclerosis (principal); G93.6 Cerebral edema
CPT/HCPCS: 70553

== ENCOUNTER → 2024-03-30 13:12 | Outpatient (CLI) | payer MEDICARE, OTHER, SELFPAY ==
[2023-02-23 18:23] VITALS: BMI 28.1
--- NOTE | 2024-03-30 14:00 | DI.MRI.S_ITS ---
PROCEDURE: MR HEAD/BRAIN WO/W CON INDICATIONS: Meningioma TECHNIQUE: Noncontrast axial T1 spin echo, axial T2 fast spin echo, sagittal and axial FLAIR, coronal T2 fast spin echo, axial gradient echo, axial diffusion and ADC through the brain. After the administration of contrast, axial and coronal and sagittal T1 spin echo with fat saturation through the brain. COMPARISON: [facility], MR, MR HEAD/BRAIN WO/W CON, 08/31/2023, 15:19. [facility], MR, MR STROKE, 06/16/2019, 15:19. [facility], MR, MR HEAD/BRAIN WO CON, 02/24/2023, 10:10. FINDINGS: Image quality: Excellent. CSF spaces: Basal cisterns are patent. No extra-axial fluid collections. Ventricles are normal in size and shape. Brain: There is again seen an extra-axial mass along the anterior aspect of the right middle cranial fossa, as on series 13, image 25. There is a broad attachment to the dura. On postcontrast imaging, this demonstrates intense, relatively uniform enhancement. In greatest axial dimension, this measures 24 x 11 mm. There is a craniocaudal extent of 15 mm. This has mildly increased in size compared to 2019. No brain parenchymal masses or abnormal enhancement can be seen. No midline shift. There is cerebral volume loss for age. There is periventricular white matter chronic small vessel ischemic change. The brainstem appears normal. Diffusion-weighted images demonstrate no acute infarct. No chronic ischemic insults. Normal intravascular flow voids are present. Skull and face: Calvarial marrow is normal in signal. Orbits appear normal. Note is made of bilateral lens replacements. Sinuses: Sinuses and mastoids appear clear. IMPRESSION: There is an intensely enhancing extra-axial mass seen along the anterior aspect of the right middle cranial fossa, with an imaging appearance most consistent with the given clinical history of meningioma. This has mildly increased in size compared to 2019. Dictated by: Glenn Jackson M.D. on 03/30/2024 at 13:53 Approved by: Glenn Jackson M.D. on 03/30/2024 at 13:57
== END ==
PROVIDERS: PCP Family Medicine; Referring Provider Neurological Surgery; Visit Provider Neurological Surgery
DX: D32.9 Benign neoplasm of meninges, unspecified (principal)
CPT/HCPCS: 70553; A9579

== ENCOUNTER → 2025-05-01 13:44 | Outpatient (CLI) | payer MEDICARE, OTHER, SELFPAY ==
[2023-02-23 18:23] VITALS: BMI 28.1
--- NOTE | 2025-05-01 14:44 | DI.MRI.S_ITS ---
PROCEDURE: MR HEAD/BRAIN WO/W CON INDICATIONS: Meningioma TECHNIQUE: Noncontrast axial T1 spin echo, axial T2 fast spin echo, sagittal and axial FLAIR, coronal T2 fast spin echo, axial gradient echo, axial diffusion and ADC through the brain. After the administration of contrast, axial and coronal and sagittal T1 spin echo with fat saturation through the brain. COMPARISON: [facility], MR, MR HEAD/BRAIN WO/W CON, 03/30/2024, 13:22. [facility], MR, MR STROKE, 06/16/2019, 15:19. [facility], MR, MR HEAD/BRAIN WO CON, 02/24/2023, 10:10. [facility], MR, MR HEAD/BRAIN WO/W CON, 08/31/2023, 15:19. FINDINGS: Image quality: Excellent. CSF spaces: Basal cisterns are patent. No extra-axial fluid collections. Ventricles are normal in size and shape. Brain: Along the anterior aspect of the right middle cranial fossa, there is again seen an enhancing extra-axial mass, as on series 13, image 165, measuring 25 x 10 mm. This lesion demonstrates low signal on T2 weighted imaging. No midline shift. No intracranial bleeds. There is cerebral volume loss for age. There is periventricular white matter chronic small vessel ischemic change. The brainstem appears normal. Diffusion-weighted images demonstrate no acute infarct. No chronic ischemic insults. Normal intravascular flow voids are present. Skull and face: Calvarial marrow is normal in signal. Orbits appear normal. Sinuses: Sinuses and mastoids appear clear. IMPRESSION: Stable meningioma seen along the anterior aspect of the right middle cranial fossa. No new masses are seen. Dictated by: Glenn Jackson M.D. on 05/01/2025 at 17:16 Approved by: Glenn Jackson M.D. on 05/01/2025 at 17:18
== END ==
LOC: MRI 13:46
PROVIDERS: PCP Family Medicine; Referring Provider Neurological Surgery; Visit Provider Neurological Surgery
DX: D32.9 Benign neoplasm of meninges, unspecified (principal)
CPT/HCPCS: 70553; A9579